=== PATIENT | female | born 1970 | race Caucasian/White ===

== ENCOUNTER → 2017-11-12 08:18 | Outpatient (CLI) | payer OTHER, SELFPAY ==
--- NOTE | 2017-11-12 08:21 | BI_ITS ---
MAMMOGRAPHY - BILATERAL SCREENING 3-D GEOVANY SYNTHESIS REASON FOR EXAM: Female, 47 years old. Bilateral Screening 3-D tomosynthesis PERTINENT HISTORY: No significant family history. TECHNIQUE: 2-D mammograms and 3-D Geovany synthesis of the breast (s) were performed. CAD was performed. COMPARISON: October 17, 2015 FINDINGS: The breast composition is almost entirely fat. There are stable lymph nodes and benign calcifications. Scattered benign calcifications are seen. No dense spiculated masses or suspicious microcalcifications are identified. No architectural distortion is identified. There is no skin thickening or retraction. There has been no significant change since the prior study. BI/SCREENING MAMM (CAD), BILAT IMPRESSION: No mammographic signs of malignancy. Routine yearly mammograms recommended. ASSESSMENT CATEGORY: BIRADS Category 2: Benign. A letter regarding these results will be sent to the patient by the facility within 30 days. FOLLOW UP RECOMMENDATION: Yearly follow up mammogram recommended. (A) Approximately 10% of breast cancers are not detected by mammography. A normal mammogram should not delay biopsy of a clinically suspicious abnormality. Electronically Signed: Remberto Amaro MD at 16:31 EDT , Service support ,
[2017-11-27 12:15] LABS: HPV APTIMA, High Risk Negative (Negative)
== END ==
PROVIDERS: Visit Provider Nurse Practitioner Women's Health
DX: Z12.31 Encounter for screening mammogram for malignant neoplasm of breast (principal); Z12.4 Encounter for screening for malignant neoplasm of cervix
CPT/HCPCS: 77063; 77067; 88175; G0145

== ENCOUNTER → 2018-11-16 | Outpatient (CLI) | payer OTHER, SELFPAY ==
--- NOTE | 2018-11-16 07:42 | BI_ITS ---
MAMMOGRAPHY - BILATERAL SCREENING REASON FOR EXAM: Female, 48 years old. Routine annual screening examination. PERTINENT HISTORY: Non-contributory. TECHNIQUE: Digital bilateral breast geovany (3D mammographic acquisition) in the CC and MLO projections. 2-D mediolateral oblique (MLO) and craniocaudad (CC) views of both breasts were obtained. CAD: Full Field Digital Mammography with Computer Added Detection was performed. COMPARISON: Comparison is made with prior study November 12, 2017 and October 24, 2016. FINDINGS: Breast Composition: There are scattered areas of fibroglandular density. There are no dominant masses or suspicious calcifications. No other significant abnormalities are identified. There has been no significant change since the prior study. BI/SCREEN MAMM (CAD) W/GEOVANY BILAT IMPRESSION: Stable bilateral screening mammogram. Yearly follow-up mammogram recommended. (A) ASSESSMENT CATEGORY: BIRADS Category 1: Negative. A letter regarding these results will be sent to the patient by the facility within 30 days. Approximately 10% of breast cancers are not detected by mammography. A normal mammogram should not delay biopsy of a clinically suspicious abnormality. [id number] Electronically Signed: Jluis Wolfe, at 11:36 EDT , Service support ,
== END | disposition home or self-care (01) ==
LOC: OPBI 07:40
PROVIDERS: Referring Provider Nurse Practitioner Women's Health; Visit Provider Nurse Practitioner Women's Health
DX: Z12.31 Encounter for screening mammogram for malignant neoplasm of breast (principal)
CPT/HCPCS: 77063; 77067

== ENCOUNTER → 2019-11-23 07:34 | Outpatient (CLI) | payer OTHER, SELFPAY ==
[2018-11-16 08:17] VITALS: BMI 40.6
--- NOTE | 2019-11-23 07:35 | BI_ITS ---
MAMMOGRAPHY - BILATERAL SCREENING REASON FOR EXAM: Female, 49 years old. Routine annual screening examination. PERTINENT HISTORY: Non-contributory. TECHNIQUE: Digital bilateral breast geovany (3D mammographic acquisition) in the CC and MLO projections. 2-D mediolateral oblique (MLO) and craniocaudad (CC) views of both breasts were obtained. CAD: Full Field Digital Mammography with Computer Added Detection was performed. COMPARISON: Comparison is made with prior examination dated November 16, 2018 and November 12, 2017. FINDINGS: Breast Composition: There are scattered areas of fibroglandular density. There are no dominant masses or suspicious calcifications. Stable benign-appearing bilateral axillary lymph nodes. No other significant abnormalities are identified. There has been no significant change since the prior study. BI/SCREEN MAMM (CAD) W/GEOVANY BILAT IMPRESSION: Stable bilateral screening mammogram. Yearly follow-up mammogram recommended. (A) ASSESSMENT CATEGORY: BIRADS Category 2: Benign. A letter regarding these results will be sent to the patient by the facility within 30 days. Approximately 10% of breast cancers are not detected by mammography. A normal mammogram should not delay biopsy of a clinically suspicious abnormality. [id number] Electronically Signed: Jluis Wolfe, at 8:37 EDT , Service support ,
== END ==
PROVIDERS: Referring Provider Nurse Practitioner Women's Health; Visit Provider Nurse Practitioner Women's Health
DX: Z12.31 Encounter for screening mammogram for malignant neoplasm of breast (principal)
CPT/HCPCS: 77063; 77067

== ENCOUNTER → 2020-11-28 07:10 | Outpatient (CLI) | payer OTHER, SELFPAY ==
[2020-10-10 10:18] VITALS: BMI 48.5
--- NOTE | 2020-11-28 07:12 | BI_ITS ---
MAMMOGRAPHY - BILATERAL SCREENING REASON FOR EXAM: Female, 50 years old. Routine annual screening examination. PERTINENT HISTORY: Non-contributory. TECHNIQUE: Digital bilateral breast geovany (3D mammographic acquisition) in the CC and MLO projections. 2-D mediolateral oblique (MLO) and craniocaudad (CC) views of both breasts were obtained. CAD: Full Field Digital Mammography with Computer Added Detection was performed. COMPARISON: Comparison is made with prior study dated 11/23/2019 and 11/16/2018. FINDINGS: Breast Composition: There are scattered areas of fibroglandular density. There are no dominant masses or suspicious calcifications. Stable benign-appearing bilateral axillary lymph nodes. No other significant abnormalities are identified. There has been no significant change since the prior study. BI/SCRN MAMM (CAD)W/GEOVANY BILAT IMPRESSION: Stable bilateral screening mammogram. Yearly follow-up mammogram recommended. (A) ASSESSMENT CATEGORY: BIRADS Category 2: Benign. A letter regarding these results will be sent to the patient by the facility within 30 days. Approximately 10% of breast cancers are not detected by mammography. A normal mammogram should not delay biopsy of a clinically suspicious abnormality. [id number] Electronically Signed: Jluis Wolfe MD at 8:15 EDT , Service support ,
== END ==
PROVIDERS: Referring Provider Nurse Practitioner Women's Health; Visit Provider Nurse Practitioner Women's Health
DX: Z12.31 Encounter for screening mammogram for malignant neoplasm of breast (principal)
CPT/HCPCS: 77063; 77067

== ENCOUNTER → 2022-03-20 | Outpatient (CLI) | payer OTHER, SELFPAY ==
--- NOTE | 2022-03-20 07:57 | BI_ITS ---
MAMMOGRAPHY - BILATERAL SCREENING REASON FOR EXAM: Female, 51 years old. Routine annual screening examination. PERTINENT HISTORY: Non-contributory. TECHNIQUE: Digital bilateral breast geovany (3D mammographic acquisition) in the CC and MLO projections. 2-D mediolateral oblique (MLO) and craniocaudad (CC) views of both breasts were obtained. CAD: Full Field Digital Mammography with Computer Added Detection was performed. COMPARISON: Comparison is made with prior study dated 11/28/2020 and 11/23/2019. FINDINGS: Breast Composition: There are scattered areas of fibroglandular density. There are no dominant masses or suspicious calcifications. Stable benign appearing bilateral axillary lymph nodes. No other significant abnormalities are identified. There has been no significant change since the prior study. BI/SCRN MAMM (CAD)W/GEOVANY BILAT IMPRESSION: Stable bilateral screening mammogram. Yearly follow-up mammogram recommended. (A) ASSESSMENT CATEGORY: BIRADS Category 2: Benign. A letter regarding these results will be sent to the patient by the facility within 30 days. Approximately 10% of breast cancers are not detected by mammography. A normal mammogram should not delay biopsy of a clinically suspicious abnormality. [id number] Electronically Signed: Jluis Wolfe MD at 8:44 EDT ,
[2022-03-26 15:21] LABS: HPV APTIMA, High Risk Negative (Negative)
== END | disposition home or self-care (01) ==
LOC: OPBI 07:56
PROVIDERS: Obstetrics & Gynecology; Visit Provider Nurse Practitioner Women's Health
DX: Z12.31 Encounter for screening mammogram for malignant neoplasm of breast (principal); Z12.4 Encounter for screening for malignant neoplasm of cervix
CPT/HCPCS: 77063; 77067; 87624; 88175; G0145

== ENCOUNTER → 2022-03-27 | Outpatient (CLI) | payer OTHER, SELFPAY ==
[2022-03-27 12:27] LABS: Absolute Lymphocyte Count 2.61 X10^3/uL (0.83-4.51); Absolute Neutrophil Count 6.7 X10^3/uL (2.0-7.7); Basophil# 0.06 X10^3/uL; Basophil% 0.6 % (0-1); Eosinophil# 0.07 X10^3/uL; Eosinophils% 0.7 % (0-5); Hematocrit 42.2 % (37-47); Hemoglobin 13.9 g/dL (12.0-15.0); Lymphocyte # 2.61 X10^3/ul (0.83-4.51); Lymphocyte % 25.8 % (19-41); Mean Corp Hgb Conc 32.9 g/dL (32-36); Mean Corpuscular Hgb 28.1 pg (27.0-32.0); Mean Corpuscular Volume 85.4 fL (81-99); Monocyte# 0.65 X10^3/uL; Monocyte% 6.4 % (0-10); NRBC Flagged by Analyzer 0 % (0-5); Neutrophil % 66.1 % (47-70); Platelet Count 385 K/mm3 (150-450); RBC Distribution Width CV 13.4 % (11.6-14.6); RBC Distribution Width SD 41.5 fl (35.1-43.9); Red Blood Count 4.94 M/mm3 (4.2-5.4); White Blood Count 10.1 K/mm3 (4.4-11.0)
[2022-03-27 12:38] LABS: ALB/GLOB Ratio 0.8 RATIO (0.9-2.4); AST(SGOT) 18 U/L (15-37); Alanine Aminotransfer ALT/SGPT 27 U/L (13-56); Albumin, Serum 3.7 g/dL (3.2-5.0); Alkaline Phosphatase 84 U/L (45-117); Anion Gap 7 (5-15); BUN 14 mg/dL (7-18); BUN/Creat Ratio 19.4 RATIO (10-20); Calcium,Total 9.7 mg/dL (8.5-10.1); Chloride 96 mmol/L (98-107); Cholesterol 182 mg/dL (200); Creatinine, Serum 0.72 mg/dL (0.55-1.02); EST Glomerular Filtration Rate 91 mL/min (>60); Est Glom Filt Rate - Afr Amer 110 mL/min (>60); Globulin 4.5 g/dL (2.2-4.2); Glucose 106 mg/dL (74-106); High Density Lipoprotein 44 mg/dL; Potassium 2.9 mmol/L (3.5-5.1); Protein, Total 8.2 g/dL (6.4-8.2); Sodium Level 135 mmol/L (136-145); Triglycerides 121 mg/dL; Very Low Density Lipoprotein 24 mg/dL (5-40); Vitamin D,25 Hydroxy 30.2 ng/mL
[2022-03-27 13:12] LABS: Thyroid Stim Hormone (TSH) 1.21 uIU/mL (0.358-3.74)
== END | disposition home or self-care (01) ==
LOC: BIMLAB 09:57
PROVIDERS: Obstetrics & Gynecology; PCP Internal Medicine; Referring Provider Internal Medicine; Visit Provider Internal Medicine
DX: I10 Essential (primary) hypertension (principal); Z13.1 Encounter for screening for diabetes mellitus; Z13.220 Encounter for screening for lipoid disorders; Z13.29 Encounter for screening for other suspected endocrine disorder; Z13.21 Encounter for screening for nutritional disorder
CPT/HCPCS: 36415; 80053; 80061; 82306; 84443; 85025

== ENCOUNTER → 2022-04-03 | Outpatient (CLI) | payer OTHER, SELFPAY ==
[2022-04-03 12:25] LABS: Anion Gap 7 (5-15); BUN 15 mg/dL (7-18); BUN/Creat Ratio 19.9 RATIO (10-20); Calcium,Total 8.9 mg/dL (8.5-10.1); Chloride 103 mmol/L (98-107); Creatinine, Serum 0.76 mg/dL (0.55-1.02); EST Glomerular Filtration Rate 86 mL/min (>60); Est Glom Filt Rate - Afr Amer 104 mL/min (>60); Glucose 125 mg/dL (74-106); Sodium Level 137 mmol/L (136-145)
== END | disposition home or self-care (01) ==
LOC: BIMLAB 09:35
PROVIDERS: PCP Internal Medicine; Referring Provider Internal Medicine; Visit Provider Internal Medicine
DX: E87.6 Hypokalemia (principal)
CPT/HCPCS: 36415; 80048

== ENCOUNTER → 2022-05-08 | Outpatient (CLI) | payer OTHER, SELFPAY ==
[2022-05-08 12:58] LABS: Anion Gap 5 (5-15); BUN 13 mg/dL (7-18); Calcium,Total 10.1 mg/dL (8.5-10.1); Chloride 102 mmol/L (98-107); Creatinine, Serum 0.68 mg/dL (0.55-1.02); EST Glomerular Filtration Rate 97 mL/min (>60); Est Glom Filt Rate - Afr Amer 117 mL/min (>60); Glucose 104 mg/dL (74-106); Potassium 3.9 mmol/L (3.5-5.1); Sodium Level 139 mmol/L (136-145)
== END | disposition home or self-care (01) ==
LOC: BIMLAB 10:35
PROVIDERS: PCP Internal Medicine; Referring Provider Internal Medicine; Visit Provider Internal Medicine
DX: I10 Essential (primary) hypertension (principal)
CPT/HCPCS: 36415; 80048

== ENCOUNTER → 2022-08-14 | Outpatient (CLI) | payer OTHER, SELFPAY ==
[2022-08-14 12:40] LABS: Anion Gap 7 (5-15); BUN 10 mg/dL (7-18); BUN/Creat Ratio 13.7 RATIO (10-20); Chloride 102 mmol/L (98-107); Creatinine, Serum 0.73 mg/dL (0.55-1.02); EST Glomerular Filtration Rate 89 mL/min (>60); Est Glom Filt Rate - Afr Amer 108 mL/min (>60); Glucose 88 mg/dL (74-106); Potassium 4.2 mmol/L (3.5-5.1); Sodium Level 140 mmol/L (136-145)
== END | disposition home or self-care (01) ==
LOC: BIMLAB 10:25
PROVIDERS: PCP Internal Medicine; Referring Provider Internal Medicine; Visit Provider Internal Medicine
DX: I10 Essential (primary) hypertension (principal)
CPT/HCPCS: 36415; 80048

== ENCOUNTER → 2023-03-10 | Outpatient (CLI) | payer OTHER, SELFPAY ==
[2023-03-10 12:05] LABS: Absolute Lymphocyte Count 1.82 X10^3/uL (0.83-4.51); Absolute Neutrophil Count 7.6 X10^3/uL (2.0-7.7); Basophil# 0.05 X10^3/uL; Basophil% 0.5 % (0-1); Eosinophil# 0.21 X10^3/uL; Hematocrit 41.2 % (37-47); Hemoglobin 13.2 g/dL (12.0-15.0); Lymphocyte # 1.82 X10^3/ul (0.83-4.51); Lymphocyte % 17.6 % (19-41); Mean Corpuscular Hgb 29.3 pg (27.0-32.0); Mean Corpuscular Volume 91.4 fL (81-99); Monocyte# 0.65 X10^3/uL; Monocyte% 6.3 % (0-10); NRBC Flagged by Analyzer 0 % (0-5); Neutrophil % 73.3 % (47-70); Platelet Count 321 K/mm3 (150-450); RBC Distribution Width CV 12.6 % (11.6-14.6); Red Blood Count 4.51 M/mm3 (4.2-5.4); White Blood Count 10.4 K/mm3 (4.4-11.0)
[2023-03-10 12:44] LABS: ALB/GLOB Ratio 0.9 RATIO (0.9-2.4); AST(SGOT) 11 U/L (15-37); Alanine Aminotransfer ALT/SGPT 23 U/L (13-56); Albumin, Serum 3.5 g/dL (3.2-5.0); Alkaline Phosphatase 81 U/L (45-117); Anion Gap 1 (5-15); BUN 15 mg/dL (7-18); BUN/Creat Ratio 19.9 RATIO (10-20); Calcium,Total 9.1 mg/dL (8.5-10.1); Chloride 105 mmol/L (98-107); Cholesterol 189 mg/dL (200); Creatinine, Serum 0.75 mg/dL (0.55-1.02); EST Glomerular Filtration Rate 86 mL/min (>60); Est Glom Filt Rate - Afr Amer 104 mL/min (>60); Globulin 3.8 g/dL (2.2-4.2); Glucose 105 mg/dL (74-106); High Density Lipoprotein 56 mg/dL; Potassium 4.7 mmol/L (3.5-5.1); Protein, Total 7.3 g/dL (6.4-8.2); Sodium Level 139 mmol/L (136-145); Triglycerides 112 mg/dL; Very Low Density Lipoprotein 22 mg/dL (5-40)
== END | disposition home or self-care (01) ==
LOC: BIMLAB 08:03
PROVIDERS: PCP Internal Medicine; Visit Provider Internal Medicine
DX: I10 Essential (primary) hypertension (principal)
CPT/HCPCS: 36415; 80053; 80061; 85025

== ENCOUNTER → 2023-05-07 | Outpatient (CLI) | payer OTHER, SELFPAY ==
--- NOTE | 2023-05-07 07:41 | BI_ITS ---
MAMMOGRAPHY - BILATERAL SCREENING REASON FOR EXAM: Female, 53 years old. Routine annual screening examination. PERTINENT HISTORY: Non-contributory. TECHNIQUE: Digital bilateral breast geovany (3D mammographic acquisition) in the CC and MLO projections. 2-D mediolateral oblique (MLO) and craniocaudad (CC) views of both breasts were obtained. CAD: Full Field Digital Mammography with Computer Added Detection was performed. COMPARISON: Comparison is made with prior study dated March 20, 2022 and November 28, 2020. FINDINGS: Breast Composition: There are scattered areas of fibroglandular density. There are no dominant masses or suspicious calcifications. Stable bilateral fat-containing axillary lymph nodes. No other significant abnormalities are identified. There has been no significant change since the prior study. BI/SCRN MAMM (CAD)W/GEOVANY BILAT IMPRESSION: Stable bilateral screening mammogram. Yearly follow-up mammogram recommended. (A) ASSESSMENT CATEGORY: BIRADS Category 2: Benign. A letter regarding these results will be sent to the patient by the facility within 30 days. Approximately 10% of breast cancers are not detected by mammography. A normal mammogram should not delay biopsy of a clinically suspicious abnormality. [id number] Electronically Signed: Jluis Wolfe MD at 14:20 EST ,
== END | disposition home or self-care (01) ==
LOC: OPBI 07:40
PROVIDERS: PCP Internal Medicine; Referring Provider Nurse Practitioner Women's Health; Visit Provider Nurse Practitioner Women's Health
DX: Z12.31 Encounter for screening mammogram for malignant neoplasm of breast (principal)
CPT/HCPCS: 77063; 77067

== ENCOUNTER → 2023-08-06 | Outpatient (CLI) | payer OTHER, SELFPAY ==
--- OUTSIDE RECORDS SUMMARY | 2023-08-06 09:22 | XMS RPT_ITS | CCD ---
Author Name Unknown Address [address] [place] [address] Organization [facility] Allergies Allergy Classification Reported Allergen(s) Allergy Type Date of Onset Reaction(s) Facility (1 source) doxycycline; Translations: [DOXYCYCLINE HYCLATE] Drug Allergy 5 [facility] Repository (1 source) erythromycin; Translations: [ERYTHROMYCIN] Drug Allergy 5 [facility] Repository (1 source) Sulfonamides (Antibiotic); Translations: [SULFA (SULFONAMIDE ANTIBIOTICS)] Propensity to adverse reactions to drug (disorder) 5 [facility] Repository Results Test Name Value Interpretation Reference Range Facil ity Encounters Encounter Date Encounter Type Care Provider Facility Start: 03-30-2018 End: 03-31-2018 Patient encounter [facility] Summary Purpose Family History No Family History Records Found Advance Directives No Advanced Directives Records Found Additional Source Comments INFORMATION SOURCE (unrecogn ized section and content) FOR RECORDS PERTAINING TO PATIENTS WHO ARE OR HAVE BEEN ENROLLED IN A CHEMICAL DEPENDENCY/SUBSTANCEABUSE PROGRAM, SOME INFORMATION MAY BE OMITTED. This clinical summary was aggregated from multiple sources. Caution should be exercised in using it in the provision of clinical care. This summary normalizes information from multiple sources, and as a consequence, information in this document may materially change the coding, format and clinical context of patient data. In addition, data may be omitted in some cases. CLINICAL DECISIONS SHOULD BE BASED ON THE PRIMARY CLINICAL RECORDS. [employer] provides no warranty or guarantee of the accuracy or completeness of information in this document.
[2023-08-06 13:08] LABS: Anion Gap 2 (5-15); BUN 15 mg/dL (7-18); BUN/Creat Ratio 20.9 RATIO (10-20); Chloride 105 mmol/L (98-107); Creatinine, Serum 0.72 mg/dL (0.55-1.02); EST Glomerular Filtration Rate 91 mL/min (>60); Est Glom Filt Rate - Afr Amer 110 mL/min (>60); Glucose 110 mg/dL (74-106); Potassium 4.8 mmol/L (3.5-5.1); Sodium Level 140 mmol/L (136-145)
== END | disposition home or self-care (01) ==
LOC: BIMLAB 08:56
PROVIDERS: PCP Internal Medicine; Referring Provider Internal Medicine; Visit Provider Internal Medicine
DX: I10 Essential (primary) hypertension (principal); E87.6 Hypokalemia
CPT/HCPCS: 36415; 80048

== ENCOUNTER → 2024-03-25 | Outpatient (CLI) | payer OTHER, SELFPAY ==
[2024-03-25 16:39] LABS: Absolute Lymphocyte Count 2.67 X10^3/uL (0.83-4.51); Absolute Neutrophil Count 5.1 X10^3/uL (2.0-7.7); Basophil# 0.07 X10^3/uL; Basophil% 0.8 % (0-1); Eosinophil# 0.19 X10^3/uL; Eosinophils% 2.2 % (0-5); Hemoglobin 13.1 g/dL (12.0-15.0); Lymphocyte # 2.67 X10^3/ul (0.83-4.51); Lymphocyte % 30.8 % (19-41); Mean Corpuscular Hgb 29.4 pg (27.0-32.0); Mean Corpuscular Volume 91.9 fL (81-99); Mean Platelet Vol. 9.6 fl (6.2-12.0); Monocyte# 0.55 X10^3/uL; Monocyte% 6.4 % (0-10); NRBC Flagged by Analyzer 0 % (0-5); Neutrophil # 5.14 X10^3/uL (2.7-7.7); Neutrophil % 59.3 % (47-70); Platelet Count 418 K/mm3 (150-450); RBC Distribution Width CV 13.2 % (11.6-14.6); Red Blood Count 4.46 M/mm3 (4.2-5.4); White Blood Count 8.7 K/mm3 (4.4-11.0)
[2024-03-25 16:54] LABS: ALB/GLOB Ratio 0.9 RATIO (0.9-2.4); AST(SGOT) 16 U/L (15-37); Alanine Aminotransfer ALT/SGPT 26 U/L (13-56); Albumin, Serum 3.8 g/dL (3.2-5.0); Alkaline Phosphatase 80 U/L (45-117); Anion Gap 5 (5-15); BUN 20 mg/dL (7-18); Calcium,Total 9.7 mg/dL (8.5-10.1); Chloride 104 mmol/L (98-107); Cholesterol 216 mg/dL (200); Creatinine, Serum 0.67 mg/dL (0.55-1.02); EST Glomerular Filtration Rate 99 mL/min (>60); Est Glom Filt Rate - Afr Amer 120 mL/min (>60); Globulin 4.1 g/dL (2.2-4.2); Glucose 85 mg/dL (74-106); High Density Lipoprotein 62 mg/dL; Potassium 4.4 mmol/L (3.5-5.1); Protein, Total 7.9 g/dL (6.4-8.2); Sodium Level 138 mmol/L (136-145); Triglycerides 154 mg/dL; Very Low Density Lipoprotein 31 mg/dL (5-40)
== END | disposition home or self-care (01) ==
LOC: BIMLAB 15:54
PROVIDERS: PCP Internal Medicine; Referring Provider Internal Medicine; Visit Provider Internal Medicine
DX: I10 Essential (primary) hypertension (principal)
CPT/HCPCS: 36415; 80053; 80061; 85025

== ENCOUNTER → 2024-08-10 | Outpatient (CLI) | payer OTHER, SELFPAY ==
--- NOTE | 2024-08-10 08:06 | BI_ITS ---
PROCEDURE: SCRN MAMM (CAD)W/GEOVANY BILAT REASON FOR EXAM: F, Age 54 y/o, no family history. Routine follow-up. TECHNIQUE: Bilateral screening digital breast tomosynthesis with 2D and 3D images. Computer aided detection. COMPARISON: Prior exam(s) dating back to May 07, 2023. FINDINGS: The breasts are almost entirely fatty. Stable bilateral fat containing axillary lymph nodes. No suspicious masses, areas of developing architectural distortion, or suspicious calcifications. BI/SCRN MAMM (CAD)W/GEOVANY BILAT IMPRESSION: BI-RADS 2: BENIGN. RECOMMEND ANNUAL MAMMOGRAPHIC SCREENING. Follow-up code: Routine Follow-up The patient will be notified of the results by letter. Reading Location: [id number]
== END | disposition home or self-care (01) ==
LOC: OPBI 07:55
PROVIDERS: PCP Internal Medicine; Referring Provider Nurse Practitioner Women's Health; Visit Provider Nurse Practitioner Women's Health
DX: Z12.31 Encounter for screening mammogram for malignant neoplasm of breast (principal)
CPT/HCPCS: 77063; 77067

== ENCOUNTER → 2024-10-05 | Outpatient (CLI) | payer OTHER, SELFPAY ==
[2024-10-05 16:38] LABS: ALB/GLOB Ratio 1.4 RATIO (0.9-2.4); AST(SGOT) 18 U/L (<=31); Alanine Aminotransfer ALT/SGPT 18 U/L (<=34); Albumin, Serum 4.3 g/dL (3.5-5.0); Alkaline Phosphatase 73 U/L (35-104); Anion Gap 11 (5-15); BUN 14 mg/dL (4-19); Carbon Dioxide 27.1 mmol/L (21.0-32.0); Chloride 101 mmol/L (98-108); Creatinine, Serum 0.64 mg/dL (0.70-1.20); EST Glomerular Filtration Rate 106 (>60); Globulin 3.1 g/dL (2.2-4.2); Glucose 93 mg/dL (70-99); Potassium 4.5 mmol/L (3.3-5.1); Protein, Total 7.5 g/dL (5.9-8.4); Sodium Level 139 mmol/L (133-145); Total Bilirubin 0.32 mg/dL (0.00-1.30)
== END | disposition home or self-care (01) ==
LOC: BIMLAB 13:02
PROVIDERS: PCP Internal Medicine; Referring Provider Internal Medicine; Visit Provider Internal Medicine
DX: I10 Essential (primary) hypertension (principal)
CPT/HCPCS: 36415; 80053

== ENCOUNTER → 2025-03-02 | Outpatient (CLI) | payer OTHER, SELFPAY ==
--- NOTE | 2025-03-02 15:45 | CT_ITS ---
PROCEDURE: CHEST WITH CONTRAST 03/02/2025 REASON FOR EXAM: ABNORMAL CXR TECHNIQUE: Procedure Code: CTCHW Modality: CT Procedure: CHEST WITH CONTRAST Coronal and Sagittal reconstruction series were provided. CONTRAST: Isovue [id number] VOLUME: 100 mL One or more dose reduction techniques were used (e.g., Automated exposure control, adjustment of the mA and/or kV according to patient size, use of iterative reconstruction technique). RADIATION DOSE SUMMARY: CTDlvol: 29.51 mGy DLP: 649.61 mGycm COMPARISON: Previous chest x-ray FINDINGS: Lung windows show the lungs to be normally expanded. There is no organized infiltrate or effusion, there is rounded atelectasis posterior to the right mainstem bronchus in the right lower lobe. No suspicious noncalcified mass or nodule is noted. Soft tissue windows show a normal-appearing thyroid gland. No suspicious axillary, mediastinal or perihilar adenopathy. Limited cuts through the upper abdomen do not show a suspicious abnormality, there is fatty infiltration of the liver. Bony structures show degenerative change. CT/Chest WITH Contrast IMPRESSION: Coronary artery calcification (CAC) is is absent No acute pulmonary process, there is rounded atelectasis posterior to the right mainstem bronchus in the superior segment of the right lower lobe, follow-up is recommended to ensure resolution No suspicious noncalcified mass or nodule No suspicious adenopathy Reading Location: [id number]
--- OUTSIDE RECORDS SUMMARY | 2025-03-02 21:23 | XMS RPT_ITS | CCD ---
Author Organization [facility] Cl[facility] Care Team Providers Care Manager Of Internal Audit Name Role Phone Care Physician, No Primary Primary Care Provider Unavailable Care Physician, No Primary Referring Provider Un available Dr. Renea Stacy Attending Provider 1(3 30) Care Physician, No Primary Primary Care Provider Unavailable Care Physician, No Primary Referring Provider Un available Dr. Renea Stacy Attending Provider 1(3 30) Dr. Lynn Barrera Attending Provider [phone] Dr. Lynn Barrera Primary Care Provider 1(33 0) Dr. Lynn Barrera Referring Provider [phone] Dr. Lynn Barrera Attending Provider [phone])2 Dr. Lynn Barrera Primary Care Provider 1(33 0) Dr. Lynn Barrera Referring Provider [phone])2 GLADIS Gunderson Attending Provider Dr. Lynn Barrera Attending Provider [phone] Luis CORE CUTTER, CORE CUTTER-C Merissa Attending Provider [phone] Dr. Lynn Barrera MD Primary Care Provider Dr. Lynn Barrera MD Attending Provider 1(33 0) Dr. Lynn Barrera MD Referring Provider [phone] Luis CORE CUTTER-C, Merissa Attending Provider [phone] Luis CORE CUTTER-C, Merissa Referring Provider [phone] Dr. Lynn Barrera MD Primary Care Provider Holly ROCA, Dr. Avalos Referring Provider [phone] 0) Holly ROCA, Dr. Avalos Attending Provider [phone] 0) Holly ROCA, Lynn Kwong Primary Care Provider 1(3 30) OLEGHE, EFEWONGBE B Primary Care Unavailable ABEREGG, KRISLYN P Attending Unavailable ABEREGG, KRISLYN P Referring Unavailable OLEGHE, EFEWONGBE B Primary Care Unavailable Holly ROCA, Dr. Avalos Primary Care Provider Holly ROCA, Dr. Avalos Attending Provider [phone] 0) Holly ROCA, Dr. Avalos Referring Provider 1(33 0) Nikos Arzola Attending Provider [phone] Oleghe, Efewongbe Primary Care Unavailable Nikos Arzola Attending Unavailable Nikos Arzola Referring Unavailable Oleghe, Efewongbe Primary Care Unavailable Oleghe, Efewongbe Attending Unavailable Oleghe, Efewongbe Referring Unavailable [place] CORE CUTTER, Merissa Attending Unavailable Oleghe, Efewongbe Primary Care Unavailable Oleghe, Efewongbe Referring Unavailable Oleghe, Efewongbe Referring Unavailable Oleghe, Efewongbe Primary Care Unavailable Oleghe, Efewongbe Attending Unavailable Oleghe, Efewongbe Primary Care Unavailable Nikos Arzola Attending Unavailable Oleghe, Efewongbe Referring Unavailable Oleghe, Efewongbe Primary Care Unavailable Oleghe, Efewongbe Attending Unavailable Oleghe, Efewongbe Referring Unavailable [place] CORE CUTTER, Merissa Referring Unavailable Oleghe, Efewongbe Primary Care Unavailable [place] CORE CUTTER, Merissa Attending Unavailable Oleghe, Efewongbe Primary Care Unavailable Oleghe, Efewongbe Attending Unavailable Oleghe, Efewongbe Referring Unavailable Oleghe, Efewongbe Primary Care Unavailable Oleghe, Efewongbe Attending Unavailable Oleghe, Efewongbe Referring Unavailable Allergies Allergy Classification Reported Allergen(s) Allergy Type Date of Onset Reaction(s) Facility (9 sources) Sulfonamides (Antibiotic); Translations: [SULFA (SULFONAMIDE ANTIBIOTICS)] Allergy to substance 5 Nausea/Vom/Diar michael [facility] (4 sources) Doxycycline; Translations: [DOXYCYCLINE HYCLATE] Drug Allergy 5 [facility] Work Phone: (4 sources) Erythromycin; Translations: [ERYTHROMYCIN] Drug Allergy 5 GI Upset [facility] Work Phone: [phone] (3 sources) Sulfonamides (Antibiotic) Propensity to adverse reactions 5 Rash [facility] Work Phone: (1 source) Sulfonamides (Antibiotic) Drug allergy (disorder) 5 [facility] Repository Medications Current Medications Medication Drug Class(es) Dates Sig (Normalized) Sig (Original) Albuterol-Budesonid e (Airsupra) 90-80 mcg/actuation HFA aerosol inhaler (1 source) Start: 02-16-2025 Albuterol-Budesoni de (Airsupra) 90-80 mcg/actuation HFA aerosol inhaler Active 2 NMA INHALATION .Q 4 hours as needed for shortness of breath 10.7 0 February 16, 2025 12:00am as a single dose; may repeat up to 6 doses per day (12 inhalations) benzonatate 100 mg oral capsule (10 sources) Non-narcotic Antitussive Start: 02-16-2025 Benzonatate 100 mg capsule Active 100 mg PO 2 to 3 times per day as needed February 16, 2025 12:00am Start: 02-16-2025 take 1 capsule by [facility] three times daily as needed for cough Benzonatate 200 mg capsule Active 200 mg PO THREE TIMES A DAY as needed for cough 21 0 February 16, 2025 12:00am Start: 03-14-2023 End: 03-19-2023 take 2 capsules by mouth three times daily as needed for cough Benzonatate 100 mg capsule Discontinued 200 mg PO THREE TIMES A DAY as needed for cough 30 0 March 14, 2023 12:00am March 19, 2023 8:08am Start: 03-14-2023 End: 03-19-2023 take 200 mg by mouth three times daily Benzonatate Discontinued 200 MG PO THREE TIMES A DAY March 13, 2023 11:00pm March 19, 2023 7:08am Start: 03-30-2018 End: 02-10-2025 take 1 capsule by mouth every eight hours as needed for cough and cough benzonatate (TESSALON PERLES) 100 mg capsule Indications: Cough Take 1 capsule by mouth three times daily as needed. 40 capsule 03/30/2018 02/03/2025 Discontinued (Course of therapy completed) betamethasone 0.5 mg/ml / clotrimazole 10 mg/ml topical cream (3 sources) Azole Antifungal, Corticosteroid Start: 06-29-2015 clotrimazole-betamethasone (LOTRISONE) cream Apply 1 application to affected area twice daily. UNTIL CLEAR FOR UP TO 2-3 WEEKS 30 g 1 06/29/2015 Active Calcium (3 sources) Phosphate Binder, Calcium Start: 04-24-2007 take 2 tablets by mouth twice daily calcium (elemental) ORAL Tab Take two tablets twice daily 0 04/24/2007 Active cetirizine hydrochloride 10 mg oral capsule (10 sources) Histamine-1 Receptor Antagonist Start: 03-27-2022 take 1 capsule by mouth once daily as needed Cetirizine (Zyrtec) 10 mg capsule Active 10 mg PO DAILY as needed March 27, 2022 12:00am take 1 tablet by mouth once nita y cetirizine (ZYRTEC) 10 mg tablet Take 10 mg by mouth once daily. Active Collagen (5 sources) Start: 03-19-2023 Collagen (Bovi ne) 100 % powder Active 1 NMA TOPICAL DAILY March 19, 2023 12:00am apply a 1/4 inches inch thick layer, do not pack tightly; cover using a non-adherent dressing Start: 03-19-2023 Collagen (Bovi ne) Active 1 APPLIC TOPICAL DAILY March 18, 2023 11:00pm apply a 1/4 inches inch thick layer, do not pack tightly; cover using a non-adherent dressing Dietary Supplement (2 sources) Start: 03-19-2023 Dietary Supple ment Active CAP PO March 18, 2023 11:00pm Start: 03-19-2023 End: 05-07-2023 Dietary Supplement Discontin ued CAP PO March 18, 2023 11:00pm May 07, 2023 8:08am Dietary Supplement capsule (8 sources) Start: 03-19-2023 Dietary Supple ment capsule Active NMA PO March 19, 2023 12:00am Start: 03-19-2023 End: 05-07-2023 Dietary Supplement capsule D iscontinued NMA PO March 19, 2023 12:00am May 07, 2023 9:08am doxycycline hyclate 100 mg oral capsule (1 source) Tetracycline-class Drug Start: 02-16-2025 take 1 capsule by mouth twice daily Doxycycline Hyclate 100 mg capsule Active 100 mg PO TWICE A DAY 20 February 16, 2025 12:00am 12 hr guaiFENesin 600 mg extended release oral tablet (3 sources) Start: 03-30-2018 take 2 tablets by mouth twice daily guaiFENesin (MUCINEX) 600 mg 12 hr tablet Indications: Sinobronchitis Take 2 tablets by mouth twice daily. 60 tablet 03/30/2018 Active levonorgestrel 0.444524 mg/hr intrauterine system (16 sources) Progestin, Progestin-containing Intrauterine Device Start: 08-31-2020 Levonorgestrel (Liletta) 20.1 mcg/24 hrs (6 yrs) 52 mg intrauterine device Active 1 NMA INTRA-UTER ONCE August 31, 2020 12:00am as a single dose Start: 08-31-2020 Levonorgestrel (Liletta) 20.1 mcg/24 hrs (6 yrs) 52 mg intrauterine device Active 1 DEVICE INTRA-UTER ONCE August 30, 2020 11:00pm as a single dose Start: 11-12-2017 End: 08-31-2020 Levonorgestrel (Mirena) 20 m cg/24 hr (5 years) intrauterine device Discontinued 1 NMA INTRA-UTER ONCE November 12, 2017 12:00am August 31, 2020 10:07am Start: 11-12-2017 End: 08-31-2020 Levonorgestrel (Mirena) 20 m cg/24 hr (5 years) intrauterine device Discontinued 1 INSERT INTRA-UTER ONCE November 11, 2017 11:00pm August 31, 2020 9:07am methylPREDNISolone (5 sources) Corticosteroid Start: 02-03-2025 End: 02-09-2025 methylPREDNISolone (MEDROL, NABILA,) 4 mg Dose-Pack Take as instructed per package. 21 tablet 02/03/2025 02/09/2025 Active Start: 02-24-2024 End: 03-25-2024 take 1 tablet by mouth once Methylprednisolone (Medrol (Nabila)) 4 mg tablets,dose pack Discontinued 0 PO per package directions 21 February 24, 2024 12:00am March 25, 2024 3:13pm PO PER PKG DIR mometasone furoate 1 mg/ml topical cream (11 sources) Corticosteroid Start: 08-06-2023 End: 02-02-2024 Mometasone 0.1 % cream Active 1 NMA TOPICAL DAILY as needed for rash 45 2 February 02, 2024 9:02am Start: 03-30-2018 mometasone (EL DINORAH) 0.1 % cream Indications: Atopic dermatitis, unspecified type Apply 1 application to affected area once daily. 45 g 1 03/30/2018 Active triamcinolone acetonide 0.055 mg/actuat metered dose nasal spray (20 sources) Corticosteroid Start: 07-05-2024 Triamcinolone Acetonide (Nasacort Allergy) 55 mcg aerosol,spray Active 2 NMA INTRANASAL DAILY 16.9 2 July 05, 2024 9:58am administer into each nostril Start: 08-07-2023 End: 07-05-2024 Triamcinolone Acetonide (Luis Alberto acort Allergy) 55 mcg aerosol,spray Discontinued 2 NMA INTRANASAL DAILY 16.9 2 February 23, 2024 3:00pm July 05, 2024 9:58am administer into each nostril Start: 08-26-2022 End: 08-07-2023 Triamcinolone Acetonide (Luis Alberto acort Allergy) 55 mcg aerosol,spray Discontinued 2 NMA INTRANASAL DAILY 16.9 2 March 19, 2023 8:22am August 07, 2023 1:27pm administer into each nostril Start: 08-26-2022 End: 03-19-2023 take 1 spray(s) nasal route once daily Triamcinolone Acetonide (Nasacort Allergy) 55 mcg aerosol,spray Active 2 SPRAY INTRANASAL DAILY 16.9 March 19, 2023 7:22am administer into each nostril VITAMIN B COMPLEX ORAL (3 sources) take 1 tablet by phill th once daily VITAMIN B COMPLEX ORAL Take 1 tablet by mouth once daily. Active Completed/Discontinued Medications Medication Drug Class(es) Dates Sig (Normalized) Sig (Original) ascorbic acid 500 mg oral capsule (11 sources) Vitamin C Start: 11-16-2018 End: 03-19-2023 Ascorbic Acid (Vitamin C) 500 mg capsule Discontinued mg PO 0 November 16, 2018 12:00am March 19, 2023 8:08am Start: 11-16-2018 End: 03-19-2023 Ascorbic Acid (Vitamin C) Discontinued MG PO November 15, 2018 11:00pm March 19, 2023 7:08am Start: 04-24-2007 take 1 tablet by phill th once daily Ascorbic Acid (VITAMIN C) 1,000 mg ORAL Tab Take one or two daily 0 04/24/2007 Active Ascorbic Acid-Elderberry Fru it (Airborne (Elderberry)) 100-50 mg tablet,chewable (7 sources) Start: 03-27-2022 End: 08-14-2022 Ascorbic Acid-Elderberry Fru it (Airborne (Elderberry)) 100-50 mg tablet,chewable Discontinued {tbl} PO March 27, 2022 12:00am August 14, 2022 10:38am Start: 03-27-2022 End: 08-14-2022 Ascorbic Acid-Elderberry Fru it (Airborne (Elderberry)) 100-50 mg tablet,chewable Discontinued TABLET PO March 26, 2022 11:00pm August 14, 2022 9:38am Start: 03-27-2022 Ascorbic Acid- Elderberry Fruit (Airborne (Elderberry)) 100-50 mg tablet,chewable Active TABLET PO March 26, 2022 11:00pm azithromycin 250 mg oral tablet (10 sources) Macrolide Antimicrobial Start: 03-14-2023 End: 03-19-2023 take 2-5 tablets by mouth once daily Azithromycin 250 mg tablet Discontinued 0 PO .COMPLEX 6 0 March 14, 2023 12:00am March 19, 2023 8:08am take 500 mg today (day 1), then 250 mg for 4 days (days 2-5) PO Start: 08-26-2022 End: 11-15-2022 take 2-5 tablets by mouth once daily Azithromycin 250 mg tablet Discontinued 0 PO .COMPLEX 6 0 August 26, 2022 12:00am November 15, 2022 8:00am take 500 mg today (day 1), then 250 mg for 4 days (days 2-5) PO B-Complex With Vitamin C (4 sources) Start: 11-23-2019 End: 11-15-2022 take 1 tablet by mouth once daily B-Complex With Vitamin C Discontinued 1 TABLET PO DAILY November 22, 2019 11:00pm November 15, 2022 7:00am Start: 11-23-2019 take 1 tablet by phill th once daily B-Complex With Vitamin C Active 1 TABLET PO DAILY November 22, 2019 11:00pm Start: 11-23-2019 take 1 tablet by phill th once daily B-Complex With Vitamin C Active 1 TABLET PO DAILY November 23, 2019 12:00am B-Complex With Vitamin C tablet (4 sources) Start: 11-23-2019 End: 11-15-2022 B-Complex With Vitamin C tablet Discontinued 1 {tbl} PO DAILY November 23, 2019 12:00am November 15, 2022 8:00am biotin 1 mg oral capsule (16 sources) Start: 08-31-2020 End: 03-19-2023 take 1 capsule by mouth once daily Biotin 1 mg capsule Discontinued 1 mg PO DAILY August 31, 2020 12:00am March 19, 2023 8:08am Start: 11-16-2018 End: 11-23-2019 take 1 capsule by mouth once daily Biotin 1 mg capsule Discontinued 1 mg PO DAILY November 16, 2018 12:00am November 23, 2019 8:04am calcium carbonate 1500 mg / cholecalciferol 0.01 mg oral capsule (8 sources) Vitamin D Start: 11-16-2018 End: 11-15-2022 Calcium Carbonate-Vitamin D3 (Calcium 600 With Vitamin D3) 600 mg(1,500mg) -400 unit capsule Discontinued NMA PO 0 November 16, 2018 12:00am November 15, 2022 8:00am Start: 11-16-2018 End: 11-15-2022 calcium carbonate-vitamin D3 600 mg (1,500 mg)-400 unit capsule Discontinued CAP PO November 15, 2018 11:00pm November 15, 2022 7:00am CBD (8 sources) Start: 08-31-2020 End: 03-20-2022 CBD Discontinued PO 0 August 31, 2020 12:00am March 20, 2022 8:52am Start: 08-31-2020 End: 03-20-2022 CBD Discontinued PO August 302020 11:00pm March 20, 2022 7:52am Start: 08-31-2020 End: 03-20-2022 CBD Discontinued PO August [id number] 12:00am March 20, 2022 8:52am 12 hr dextromethorphan polistirex 6 mg/ml extended release suspension (5 sources) Uncompetitive D-oyixkj-I-aspartate Receptor Antagonist, Sigma-1 Agonist Start: 03-14-2023 End: 03-19-2023 take 1 mL by mouth every twelve hours Dextromethorphan Polistirex (12-Hour Cough Relief) 30 mg/5 mL suspension,extended rel 12 hr Discontinued 10 mL PO Q12H March 14, 2023 12:00am March 19, 2023 8:08am Start: 03-14-2023 End: 03-19-2023 take 1 mL by mouth every twelve hours Dextromethorphan Polistirex (12-Hour Cough Relief) 30 mg/5 mL suspension,extended rel 12 hr Discontinued 10 ML PO Q12H March 13, 2023 11:00pm March 19, 2023 7:08am dextromethorphan hydrobromide 2 mg/ml / guaiFENesin 20 mg/ml oral solution (5 sources) Uncompetitive T-srogsa-S-aspartate Receptor Antagonist, Sigma-1 Agonist Start: 08-26-2022 End: 11-15-2022 take 1 mL by mouth every four hours as needed for cough Dextromethorphan-Guaifenesin 10-100 mg/5 mL liquid Discontinued 10 mL PO Q4H as needed for cough 120 0 August 26, 2022 12:00am November 15, 2022 8:00am Start: 08-26-2022 End: 11-15-2022 take 1 mL by mouth every four hours Dextromethorphan-Guaifenesin Discontinue d 10 ML PO Q4H 120 August 25, 2022 11:00pm November 15, 2022 7:00am diphenhydrAMINE hydrochloride 25 mg oral capsule (5 sources) Histamine-1 Receptor Antagonist Start: 03-14-2023 End: 03-19-2023 take 1 capsule by mouth at bedtime as needed Diphenhydramine Hcl (Benadryl) 25 mg capsule Discontinued 25 mg PO AT BEDTIME as needed March 14, 2023 12:00am March 19, 2023 8:08am hydroCHLOROthiazide 25 mg oral tablet (8 sources) Thiazide Diuretic Start: 03-20-2022 End: 03-27-2022 take 1 tablet by mouth twice daily Hydrochlorothiazide 25 mg tablet Discontinued 25 mg PO TWICE A DAY 60 March 20, 2022 12:00am March 27, 2022 9:45am hydroCHLOROthiazide 25 mg / triamterene 37.5 mg oral tablet (20 sources) Potassium-spari ng Diuretic, Thiazide Diuretic Start: 03-27-2022 End: 01-27-2025 Triamterene-Hydrochlor othiazid 37.5-25 mg tablet Discontinued 1 {tbl} PO EVERY MORNING 90 May 10, 2024 5:33pm July 05, 2024 9:59am Start: 03-27-2022 End: 11-15-2022 take 1 tablet by mouth once daily in the morning Triamterene-Hydrochlorothiazid Active 1 TABLET PO EVERY MORNING 90 November 15, 2022 7:19am potassium chloride 20 meq extended release oral tablet (7 sources) Start: 03-27-2022 End: 08-14-2022 take 2 tablets by mouth once daily Potassium Chloride 20 mEq tablet extended release Discontinued 40 meq PO DAILY 6 March 27, 2022 12:00am August 14, 2022 10:39am Start: 03-27-2022 End: 08-14-2022 take 40 mEq by mouth once daily Potassium Chloride Discontinued 40 MEQ PO DAILY March 26, 2022 11:00pm August 14, 2022 9:39am valsartan 80 mg oral tablet (20 sources) Angiotensin 2 Receptor Fabiana Start: 03-27-2022 End: 02-07-2025 take 1 tablet by mouth once daily Valsartan 80 mg tablet Discontinued 80 mg PO DAILY 90 May 10, 2024 5:33pm July 05, 2024 9:59am Problems Active Problems Problem Classification Problem Date Documented Da te Episodic/Chronic Chronic obstructive pulmonary disease and bronchiectasis (2 sources) Bronchitis; Translations: [Bronchitis, not specified as acute or chronic] 02-16-2025 Episodic Essential hypertension (18 sources) Hypertensive disorder; Translations: [Essential (primary) hypertension] Onset: 11-24-2024 Chronic Fever of unknown origin (3 sources) Fever; Translations: [Fever, unspecified] Onset: 02-03-2025 02-03-2025 Episodic Other gastrointestinal disorders (1 source) Acute constipation; Translations: [Constipation, unspecified] 02-03-2025 Episodic Other gastrointestinal disorders (1 source) Constipation, unspecified; Translations: [Acute constipation] Onset: 02-03-2025 Episodic Other lower respiratory disease (1 source) Cough; Translations: [Acute cough] 02-03-2025 Episodic Other lower respiratory disease (2 sources) Lung finding; Translations: [Other nonspecific abnormal finding of lung field] 02-16-2025 Episodic Other lower respiratory disease (2 sources) Other nonspecific abnormal finding of lung field; Translations: [Other nonspecific abnormal finding of lung field] Onset: 02-16-2025 Episodic Other nutritional; endocrine; and metabolic disorders (9 sources) Morbid obesity; Translations: [Morbid (severe) obesity due to excess calories] 03-27-2022 Chronic Other nutritional; endocrine; and metabolic disorders (6 sources) Morbid (severe) obesity due to excess calories; Translations: [Morbid obesity] Onset: 11-24-2024 Chronic Other nutritional; endocrine; and metabolic disorders (3 sources) Metabolic syndrome X; Translations: [Dysmetabolic syndrome X] Onset: 07-30-2005 10-12-2024 Chronic Other upper respiratory disease (7 sources) Seasonal allergy; Translations: [Other seasonal allergic rhinitis] 03-19-2023 Chronic Other upper respiratory disease (1 source) Other seasonal allergic rhinitis; Translations: [Allergic rhinitis, cause unspecified] 03-19-2023 Chronic Substance-related disorders (3 sources) Tobacco user; Translations: [Nicotine dependence, unspecified, uncomplicated] Onset: 07-30-2005 10-12-2024 Chronic Unclassified (1 source) Acute cough; Translations: [Acute cough] Onset: 02-03-2025 Past or Other Problems Problem Classification Problem Date Documented Date Episodic/Chronic Contraceptive and procreative management (15 sources) Intrauterine contraceptive device in situ; Translations: [Presence of (intrauterine) contraceptive device] Onset: 07-22-2012 08-31-2020 Episodic Comment on above: raoul 08/2020 Fluid and electrolyte disorders (14 sources) Hypokalemia; Translations: [Hypokalemia] Onset: 11-24-2024 Episodic Other screening for suspected conditions (not mental disorders or infectious disease) (1 source) Encounter for screening mammogram for malignant neoplasm of breast; Translations: [Encounter for screening mammogram for malignant neoplasm of breast] Onset: 08-22-2024 Episodic Results Test Name Value Interpretation Reference Range Facility Internal Medicine Office Vis iton 02-16-2025 Internal Medicine Office Visit [facility] [address] [place], [place] [address] OFFICE VISIT Date of Service: 02/16/25 MR#: [id number] Acct: [id number] Name: IONA WERNER Rep #: [id number] : 1970 Provider: GLADIS Manzano Age/Sex: 54/F Location: [facility] Status: Signed Intake Vital Signs 11/24/24 08:26 02/16/25 10:34 Height 5 ft 3 in 5 ft 3 in Weight: 263 lb 6 oz 267 lb 6 oz BMI 46.6 47.3 BP 146/88 H 124/78 H Blood Pressure Location Lt brachial Rt brachial Position Sitting Sitting Respiration 16 16 Pulse 69 87 Pulse Source Monitor Monitor Temp 96.5 F L 98.1 F Temp Source Temporal Temporal Pulse Oximetry (%) 96 97 Oxygen Delivery Method room air room air Intake Visit Reasons: ACUTE-COUGH/CONGESTI ON Chief Complaint: cough congestion Forensic Social Worker Required: No Accompanied by: Self Is patient in pain?: No Allergies Sulfa (Sulfonamide Antibiotics) Allergy (Mild, Verified 02/16/25 10:26) Nausea/Vom/Diarrhea Medications ???Medication ???Instructions ???Recorded ???Confirmed ???Type levonorgestrel 20.4 mcg/24 hr (up 1 device intrauterine ONCE 02/16/25 History to 8 yrs) 52 mg intrauterine device (Liletta) cetirizine 10 mg capsule (Zyrtec) 10 mg PO DAILY PRN 03/27/2202/16 History collagen (bovine) 100 % topical 1 applic topical DAILY 03/19/23 History powder dietary supplement cap PO 03/19/23 02/16/25 History mometasone 0.1 % topical cream 1 applic topical DAILY PRN rash 02/16/25 Rx #45 grams triamcinolone acetonide 55 mcg 2 spray intranasal DAILY #16.9 mL 07/05/24 02/16/25 Rx nasal spray aerosol (Nasacort Allergy) triamterene 37.5 1 tab PO QAM #90 tabs 01/27/2509/07 Rx mg-hydrochlorothiazi de 25 mg tablet valsartan 80 mg tablet 80 mg PO DAILY #90 tabs 02/07/25 0 02/16/25 Rx albuterol 90 mcg-budesonide 80 2 inh inhalation .Q 4 hours PRN 02/16/25 Rx mcg/actuation HFA aerosol inhaler shortness of breath #10.7 grams (Airsupra) benzonatate 100 mg capsule 100 mg PO BID-TID PRN 02/16/2509/07 History benzonatate 200 mg capsule 200 mg PO TID PRN cough #21 caps 0 02/16/25 02/16/25 Rx doxycycline hyclate 100 mg capsule 100 mg PO BID #20 caps 02/16/25 02/16/25 Rx Nurse's Note: cough and congestion seen at [facility] urgent care paper work scanned REPLACED BY [facility] Medical History Seasonal allergies Morbid obesity Hypokalemia Surgical History [place] teeth extracted Family History Mother Hypertension Father Heart disease Social History Smoking Status: Former smoker alcohol intake: current details: social substance use type: does not use caffeine: Yes what type of physical activity do you participate in: none seatbelt use: always do you feel safe at home: Yes additional social history: - [employer] HPI HPI Chief Complaint: cough congestion Details: IONA WERNER, is a 54 F who presents to the office today for f/u on URI symptoms. She states that she initially was seen on 02-03 for URI symptoms after a few days. She started with a temperature and some coughing (tickle in her throat). She states that the fever lingered for a few days and resolved on that Friday. She continued to have some nasal congestion. At this time though she states that she does not have sore throat, ear pains, fevers, wheezing, shortness of breath. She states that initially they gave her some Tesselon perles for the cough which she has been taking. She states that the cough is a little worse first thing AM and when she is lying down in the evening. She states that she does not feel anything in the chest and she doesn't really get anything up when she coughs and she states that overall she feels fine just cant get rid of the cough. She denies any history of asthma, COPD or other respiratory issues. She is not a smoker nor has she been. She does have some allergies environmentally and she takes the nasacort and the zyrtec intermittently. ROS Const Constitutional: No body ache, excessive sweating, fatigue, fever(s), frequent falls, headache(s), snoring, weakness, weight change, sleep problems or change in appetite Eyes Eyes: No blurry vision, change in vision, eye pain or Light sensitivity ENT ENT: No abnormal hearing, ear or mastoid pain, tinnitus, nasal congestion, headache(s), neck pain or sore throat Resp Respiratory: No cough, shortness of breath, snoring or wheezing Cardio Cardiology: No chest pain at rest, chest pain with exertion, excessive sweating, shortness of breath, dyspnea on exertion, lightheadedness, orthopnea o (more content not included)... Normal [facility] 02-15-2025 [facility] Telephone (UCWSTR) IONA WERNER ([id number]) 1970 F Date Time Provider Department 02/15/25 DEO FOSTER [facility] During your visit today, we recorded the following information about you: Mayte Qiu RN 02/15/2025 8:56 AM Signed Patient calls to report that she continues to have cough 14 days after initial evaluation. Reviewed OV notes. Recommended patient follow up with PCP as previously recommended. Chest X-Ray results faxed to Dr. Barrera as patient requested. Reviewed care advice and OTC medication that patient could try with verbalized understanding. Notified patient that if she was not able to get into PCP and was requesting further treatment she would need to come into Urgent Care with verbalized understanding. Mayte Qiu RN Allergies As of Date: 02/15/2025 Noted Allergy Reaction DOXY (DOXYCYCLINE HYCLATE) 05/02/2005 ERYC (ERYTHROMYCIN) 05/02/2005 8 - GI Upset Comments: Can take z pack SULFA (SULFONAMIDE ANTIBIOTICS) 05/02/2005 2 - Rash Date Reviewed: 02/03/2025 Reviewed by: Aleida Nogueira MA - Fully Assessed Reason for Visit: Patient Question [2137] Results [95] Prescriptions as of 02/15/2025 - triamterene-hydroCHL OROthiazide (MAXZIDE-25) 37.5-25 mg per tablet Take 1 tablet by mouth every morning. - valsartan (DIOVAN) 80 mg tablet Take 1 tablet by mouth once daily. - cetirizine (ZYRTEC) 10 mg tablet Take 10 mg by mouth once daily. - guaiFENesin (MUCINEX) 600 mg 12 hr tablet Take 2 tablets by mouth twice daily. - mometasone (ELOCON) 0.1 % cream Apply 1 application to affected area once daily. - clotrimazole-betamet hasone (LOTRISONE) cream Apply 1 application to affected area twice daily. UNTIL CLEAR FOR UP TO 2-3 WEEKS - VITAMIN B COMPLEX ORAL Take 1 tablet by mouth once daily. - calcium (elemental) ORAL Tab Take two tablets twice daily - Ascorbic Acid (VITAMIN C) 1,000 mg ORAL Tab Take one or two daily Meds Comments as of 04/24/2007: All medications have been reviewed /April 24, 2007 Justa Kiglore [facility] Problem List As Of Date 02/15/2025 Noted Resolved DYSMETABOLIC SYNDROME X [E88.810] 07/30/2005 TOBACCO USE DISORDER [F17.200] 07/30/2005 IUD (intrauterine device) in place [Z97.5] 07/22/2012 Encounter Status:Closed by MAYTE QIU on 02/15/[address] [facility] CNCOon 02-04-2025 CNCO Letter Text [facility] CNOVon 02-03-2025 CNOV Office Visit (WOUCA) IONA WERNER ([id number]) 1970 F Date Time Provider Department 02/03/25 11:15 AM DEO FOSTER [facility] During your visit today, we recorded the following information about you: Temperature Pulse Respiration Blood pressure 100 degrees 110/minute 21/minute 140/90 Weight 122.9 kg Deo Foster PA 02/03/2025 11:56 AM Addendum - Chest X-ray performed today showed prominent fullness in the right hilum. - Contact your PCP to Schedule a CT scan of your chest with IV contrast as recommended - Begin the Medrol Dosepak now for cough relief; follow the dosing instructions provided with the prescription. - Take Tessalon Perles as needed to help suppress your cough; follow the directions on the prescription label. - Follow up with your primary care provider Deo Foster PA 02/03/2025 12:03 PM Signed [facility] Subjective Iona Werner is a 54 year old female. Patient presents with: Cough: Fever, chest congestion x 4 days HPI Cough and Fever: - Onset of cough approximately 5 days ago, followed by fever the next day. - Fever as high as 102.7 degreeF, with the most recent high of 102.6 degreeF yesterday evening. - Fever temporarily reduced to 99.3 degreeF once; currently at 100 degreeF. - Taking Advil and Tylenol to manage fever; last dose of Tylenol taken before the visit. - Denies rhinorrhea and nasal congestion; reports yellow nasal discharge. - Cough described as dry; denies productive cough. - Denies history of COPD or asthma. - Denies tobacco use. - Denies exposure to sick contacts. - Avoiding additional medications due to concerns about interactions with antihypertensive medication. Review of Systems Constitutional: (+) fever Ears/Nose/Mouth/Thro at: (+) rhinorrhea Respiratory: (+) dry cough, (-) sputum production Objective BP 140/90 Pulse 110 Temp 37.8 ?C (100 ?F) Resp 21 Wt 122.9 kg (270 lb 15.1 oz) LMP 07/10/2010 SpO2 97% BMI 48.61 kg/m? Physical Exam Vitals and nursing note reviewed. Constitutional: General: She is not in acute distress. Appearance: Normal appearance. She is not toxic-appearing. HENT: Right Ear: Tympanic membrane and ear canal normal. Left Ear: Tympanic membrane and ear canal normal. Nose: Nose normal. Mouth/Throat: Mouth: Mucous membranes are moist. Cardiovascular: Rate and Rhythm: Normal rate and regular rhythm. Pulmonary: Effort: Pulmonary effort is normal. Breath sounds: Normal breath sounds. No wheezing, rhonchi or rales. Skin: General: Skin is warm and dry. Neurological: Mental Status: She is alert. { 1. Fever, unspecified fever cause (R50.9) 2. Acute cough (R05.1) - Acute onset of dry cough and fever (up to 102.7 degreeF) for 5 days; chest X-ray reveals prominent fullness of right hilum. - Etiology likely viral; declined COVID-19 testing. - Start Tessalon Perles as cough suppressant. - Start Medrol Dosepak to help with cough. - Radiology recommend CT chest with IV contrast to further evaluate right hilar fullness; patient agreeable. - Provided written and verbal instructions regarding CT chest and need for follow-up with PCP. Recording using [employer] software for draft documentation of the visit was discussed with the patient/authorized medical customer service representative; all questions welcomed and answered. Patient/authorized medical customer service representative agreed to proceed History and Record Review External record(s) reviewed: prior outpatient record. Systemic symptoms present included: fever Differential Diagnoses - uri is more likely for the following reason(s): suggested by HANDP - pneumonia is less likely for the following reason(s): no evidence on imaging Disposition The patient was discharged. Procedures Allergies As of Date: 02/03/2025 Noted Allergy Reaction DOXY (DOXYCYCLINE HYCLATE) 05/02/2005 ERYC (ERYTHROMYCIN) 05/02/2005 8 - GI Upset Comments: Can take z pack SULFA (SULFONAMIDE ANTIBIOTICS) 05/02/2005 2 - Rash Date Reviewed: 02/03/2025 Reviewed by: Aleida Nogueira MA - Fully Assessed Reason for Visit: Cough [28] Cmt: Fever, chest congestion x 4 days Primary Visit Diagnosis:Fever, unspecified fever cause [R50.9] Other Visit Diagnosis:Acute cough [R05.1] Order(s):XR CHEST 2V FRONTAL/LAT [[id number]] Order #: [id number] FUTURE benzonatate (TESSALON PERLE) 100 mg capsuleTake 1 capsule by mouth three times a day as needed for cough for up to 7 days.Disp: 21 capsuleRfl: 0 methylPREDNISolone (MEDROL, NABILA,) 4 mg Dose-PackTake as instructed per package.Disp: 21 tabletRfl: 0 Prescriptions as of 02/03/2025 - triamterene-hydroCHL OROthiazide (MAXZIDE-25) 37.5-25 mg per tablet Take 1 tablet by mouth every morning. - valsartan (DIOVAN) 80 mg tablet Take 1 tablet by mouth once daily. - cetirizine (ZYRTEC) 10 mg tablet Take 10 mg by mouth once daily. - benzonat (more content not included)... Normal [facility] XR CHEST 2V FRONTAL/LATon XR CHEST 2V FRONTAL/LAT * * *Final Report* * * DATE OF EXAM: Feb 03 2025 11:43AM WOX 5291 - XR CHEST 2V FRONTAL/LAT / PROCEDURE REASON: multiple diagnoses * * * * Physician Interpretation * * * * EXAMINATION: CHEST RADIOGRAPH (2 VIEW FRONTAL and LATERAL) TECHNOLOGIST PROVIDED HISTORY: Acute cough and fever CLINICAL HISTORY: 54 years old Female with Acute constipation. Fever, unspecified fever cause MQ: XC2_6 EXAM DATE/TIME: 02/03/2025 11:43 AM COMPARISON: No relevant prior studies available. RESULT: Lines, tubes, and devices: None. Lungs and pleura: No apparent consolidation. No pleural effusion or pneumothorax. Cardiomediastinal silhouette: Normal heart size. Prominent fullness of the RIGHT hilum. Bones and soft tissues: Unremarkable. IMPRESSION: Prominent fullness of the RIGHT hilum. Recommend further evaluation with contrast-enhanced CT. ACTIONABLE RESULT: FOLLOW-UP Acuity: Actionable Findings: Thoracic-Other Routing Code: CT_1 Recommendation: CT Chest W IVCON Time Frame: At the discretion of the clinical team. COMMUNICATION: Results will be communicated with the ordering provider via [employer] staff message or phone message by Imaging Support Services within 2 business days of report finalization. --END OF FINDING-- Precision Layout Worker: MURIEL Transcribe Date/Time: Feb 03 2025 11:44A Dictated by : STEPHANY MARTINEZ DO This examination was interpreted and the report reviewed and electronically signed by: STEPHANY MARTINEZ DO on Feb 03 2025 11:47AM EST [id number] ACTIONABLE Invalid Interpretation Code [facility] XR Chest PA and LateralOrder ed By: [facility] Provider on 02-03-2025 Interpretation and review of laboratory results Abnormal [facility] Radiology Result ACTIONABLE Abnormal [facility] Comment on above: This report contains an incidental or actionable finding. This finding may be a new finding separate from the reason your provider ordered the imaging test or it may be an already known finding that needs additional or continued follow-up. Because of this incidental or actionable finding, you may need another test (imaging or a different type of test). Please contact your provider for the next steps. [facility] XR Chest PA and Lateralon * * *Final Report* * * DATE OF EXAM: Feb 03 2025 11:43AM WOX 5291 - XR CHEST 2V FRONTAL/LAT / PROCEDURE REASON: multiple diagnoses * * * * Physician Interpretation * * * * EXAMINATION: CHEST RADIOGRAPH (2 VIEW FRONTAL & LATERAL) TECHNOLOGIST PROVIDED HISTORY: Acute cough and fever CLINICAL HISTORY: 54 years old Female with Acute constipation. Fever, unspecified fever cause MQ: XC2_6 EXAM DATE/TIME: 02/03/2025 11:43 AM COMPARISON: No relevant prior studies available. RESULT: Lines, tubes, and devices: None. Lungs and pleura: No apparent consolidation. No pleural effusion or pneumothorax. Cardiomediastinal silhouette: Normal heart size. Prominent fullness of the RIGHT hilum. Bones and soft tissues: Unremarkable. DIVISION OF RADIOLOGY Provider, [facility] Imaging [place] - 02/03/2025 * * *Final Report* * * DATE OF EXAM: Feb 03 2025 11:43AM WOX 5291 - XR CHEST 2V FRONTAL/LAT / PROCEDURE REASON: multiple diagnoses * * * * Physician Interpretation * * * * EXAMINATION: CHEST RADIOGRAPH (2 VIEW FRONTAL & LATERAL) TECHNOLOGIST PROVIDED HISTORY: Acute cough and fever CLINICAL HISTORY: 54 years old Female with Acute constipation. Fever, unspecified fever cause MQ: XC2_6 EXAM DATE/TIME: 02/03/2025 11:43 AM COMPARISON: No relevant prior studies available. RESULT: Lines, tubes, and devices: None. Lungs and pleura: No apparent consolidation. No pleural effusion or pneumothorax. Cardiomediastinal silhouette: Normal heart size. Prominent fullness of the RIGHT hilum. Bones and soft tissues: Unremarkable. IMPRESSION IMPRESSION: Prominent fullness of the RIGHT hilum. Recommend further evaluation with contrast-enhanced CT. ACTIONABLE RESULT: FOLLOW-UP Acuity: Actionable Findings: Thoracic-Other Routing Code: CT_1 Recommendation: CT Chest W IVCON Time Frame: At the discretion of the clinical team. COMMUNICATION: Results will be communicated with the ordering provider via [employer] staff message or phone message by Imaging Support Services within 2 business days of report finalization. --END OF FINDING-- Precision Layout Worker: MURIEL Transcribe Date/Time: Feb 03 2025 11:44A Dictated by : STEPHANY MARTINEZ DO This examination was interpreted and the report reviewed and electronically signed by: STEPHANY MARTINEZ DO on Feb 03 2025 11:47AM EST [facility] Radiology Study observation (narrative) [facility] Internal Medicine Office Vis iton 11-24-2024 Internal Medicine Office Visit [facility] [address] [place], [place] [address] OFFICE VISIT Date of Service: 11/24/24 MR#: [id number] Acct: [id number] Name: IONA WERNER Rep #: [id number] : 1970 Provider: Dr. Lynn upton MD Age/Sex: 54/F Location[place] [facility] Status: Signed Intake Vital Signs 03/25/24 16:01 08/10/24 08:47 11/24/24 08:26 Height 5 ft 3 in 5 ft 3 in 5 ft 3 in Weight: 263 lb 6 oz BMI 46.6 BP 146/88 H Blood Pressure Location Lt brachial Position Sitting Respiration 16 Pulse 69 Pulse Source Monitor Temp 96.5 F L Temp Source Temporal Pulse Oximetry (%) 96 Oxygen Delivery Method room air Intake Visit Reasons: 4 M FU Chief Complaint: FU Chronic Conditions Forensic Social Worker Required: No Accompanied by: Self Is patient in pain?: No Allergies Sulfa (Sulfonamide Antibiotics) Allergy (Mild, Verified 11/24/24 08:17) Nausea/Vom/Diarrhea Medications ???Medication ???Instructions ???Recorded ???Confirmed ???Type levonorgestrel 20.4 mcg/24 hr (up 1 device intrauterine ONCE 11/24/24 History to 8 yrs) 52 mg intrauterine device (Liletta) cetirizine 10 mg capsule (Zyrtec) 10 mg PO DAILY PRN 03/27/2211/24 History collagen (bovine) 100 % topical 1 applic topical DAILY 03/19/23 History powder dietary supplement cap PO 03/19/23 11/24/24 History mometasone 0.1 % topical cream 1 applic topical DAILY PRN rash 11/24/24 Rx #45 grams triamcinolone acetonide 55 mcg 2 spray intranasal DAILY #16.9 mL 07/05/24 11/24/24 Rx nasal spray aerosol (Nasacort Allergy) triamterene 37.5 1 tab PO QAM #90 tabs 07/05/2405/10 Rx mg-hydrochlorothiazi de 25 mg tablet valsartan 80 mg tablet 80 mg PO DAILY #90 tabs 07/05/24 0 11/24/24 Rx Nurse's Note: refills needed PFSH Medical History Seasonal allergies Morbid obesity Hypokalemia Surgical History [place] teeth extracted Family History Mother Hypertension Father Heart disease Social History Smoking Status: Former smoker alcohol intake: current details: social substance use type: does not use caffeine: Yes what type of physical activity do you participate in: none seatbelt use: always do you feel safe at home: Yes additional social history: - [employer] HPI HPI Chief Complaint: FU Chronic Conditions Details: IONA WERNER, is a 54 F who presents to the office today for follow-up of her chronic medical conditions. No acute concerns at this time. History of hypertension, elevated in office however she did keep a very good log and her readings at home have ranged largely less than 120/80 mmHg. Highest home blood pressure reading was 132/89 and repeat later read on that day was 129/82 mmHg. Most readings as above less than 120. Blood pressure at home this morning was 120/76. Has been staying active. Lost some more weight since her last visit. Compliant with her medication. Other chronic medical conditions are stable. ROS Const Constitutional: No body ache, excessive sweating, fatigue, fever(s), frequent falls, headache(s), snoring, weakness, weight change, sleep problems or change in appetite Eyes Eyes: No blurry vision, change in vision, floaters, visual disturbances, eye pain or Light sensitivity ENT ENT: No abnormal hearing, ear or mastoid pain, tinnitus, balance problems, nosebleed/epistaxis, nasal congestion, headache(s), neck pain or sore throat Resp Respiratory: No cough, excessive phlegm production, pain on inspiration, shortness of breath, snoring or wheezing Cardio Cardiology: No chest pain at rest, chest pain with exertion, excessive sweating, shortness of breath, dyspnea on exertion, lightheadedness, orthopnea or palpitations Gastro GI: No abdominal pain, change in bowel habits, constipation, cramping, diarrhea, nausea/dyspepsia or vomiting Genitourinary-Female : No burning urination, painful urination, urinary incontinence, urinary frequency, blood in urine, suprapubic fullness, side pain, abnormal periods or pelvic pain Musc Musculoskeletal: No abnormal gait, joint pain, back pain, limited range of motion, neck pain, numbness, stiffness, tingling or Arthritis Skin Skin: No dry skin, redness, excessive hair growth, yellowing of the eye, lesions, itchy eyes, rash or wounds Neuro Neurology: No abnormal gait, abnormal hearing, abnormal speech, confusion, unsteady gait/balance, dizziness, weakness, frequent falls, headache(s), memory loss, numbness, tingling or visual disturbances Psych Psychiatric: No anxiety, No change in appetite, No conf (more content not included)... Normal [facility] Anion gap in Serum or Plasma Ordered By: Lynn Barrera on 10-05-2024 Anion gap [Moles/Vol] 11 mmol/L 5-15 [facility] BUN/creatinine ratioOrdered By: Lynn Barrera on 10-05-2024 Urea nitrogen/Creatinine [Mass ratio] 21.0 mg/mg High 10-20 [facility] Bilirubin, totalOrdered By: Lynn Barrera on 10-05-2024 Bilirubin [Mass/Vol] 0.32 mg/dL 0.00-1.30 [facility] Carbon dioxide, total [Moles /volume] in Central venous bloodOrdered By: Lynn Barrera on 10-05-2024 CO2 [Moles/Vol] 27.1 mmol/L 21.0-32.0 [facility] Chloride assayOrdered By: Elmer Barrera on 10-05-2024 Chloride [Moles/Vol] 101 mmol/L 98-108 [facility] GFR/1.73 sq M.predicted sandeep g non-blacks MDRD (S/P/Bld) [Vol rate/Area]Ordered By: Lynn Barrera on 10-05-2024 Estimated GFR (MDRD) Non-Af Amer 106 >60 [facility] Comment on above: mL/min/1.73m2 CKD-EP I Creatinine Equation (2020) Glomerular filtration rate ( GFR) estimation/1.73 sq m using serum, plasma, or whole bOrdered By: Lynn Barrera on 10-05-2024 GFR/1.73 sq M.predicted among non-blacks MDRD (S/P/Bld) [Vol rate/Area] 106 mL/min/{1.73_m2} >60 [facility] Comment on above: mL/min/1.73m2 CKD-EP I Creatinine Equation (2020) Laboratory - Chemistry and C hemistry - challengeOrdered By: Lynn Barrera on 10-05-2024 AST [Catalytic activity/Vol] 18 U/L <32 [facility] Potassium (Unsp spec) [Mass/ Vol]Ordered By: Lynn Barrera on 10-05-2024 Potassium [Moles/Vol] 4.5 mmol/L 3.3-5.1 [facility] Potassium measurement (mass/ volume)Ordered By: Lynn Barrera on 10-05-2024 Potassium (Unsp spec) [Mass/Vol] 4.5 mmol/L 3.3-5.1 [facility] Serum creatinine measurement (mass/volume)Ordered By: Lynn Barrera on 10-05-2024 Creatinine [Mass/Vol] 0.64 mg/dL Low 0.70-1.20 [facility] Serum globulin measurementOr dered By: Lynn Barrera on 10-05-2024 Globulin (S) [Mass/Vol] 3.1 g/dL 2.2-4.2 [facility] Serum glucose measurement (m ass/volume)Ordered By: Lynn Barrera on 10-05-2024 Glucose [Mass/Vol] 93 mg/dL 70-99 [facility] Serum or plasma alanine oleary otransferase (ALT) measurementOrdered By: Lynn Barrera on 10-05-2024 ALT [Catalytic activity/Vol] 18 U/L <35 [facility] Serum or plasma albumin zoraida urement (mass/volume)Ordered By: Lynn Barrera 10-05-2024 Albumin [Mass/Vol] 4.3 g/dL 3.5-5.0 [facility] Serum or plasma albumin/glob ulin mass ratioOrdered By: Lynn Barrera on 10-05-2024 Albumin/Globulin [Mass ratio] 1.4 {ratio} 0.9-2.4 [facility] Serum or plasma alkaline jonah sphatase measurementOrdered By: Lynn Barrera on 10-05-2024 ALP [Catalytic activity/Vol] 73 U/L 35-104 [facility] Serum or plasma calcium zoraida urement (mass/volume)Ordered By: Lynn Barrera on 04-22-2025 Calcium [Mass/Vol] 10.0 mg/dL 7.6-11.0 [facility] Serum or plasma urea nitroge n measurement (mass/volume)Ordered By: Lynn Barrera on 10-05-2024 Urea nitrogen [Mass/Vol] 14 mg/dL 4-19 [facility] Sodium levelOrdered By: Elmerautumn oli Holly on 10-05-2024 Sodium [Moles/Vol] 139 mmol/L 133-145 [facility] Total proteinOrdered By: Osvaldo bean Barrera on 10-05-2024 Protein [Mass/Vol] 7.5 g/dL 5.9-8.4 [facility] Breast imaging reportOrdered By: Jluis Wolfe on 08-10-2024 Study report [facility] Imaging Services [address] [place] [address] SCRN MAMM (CAD)W/GEOVANY BILAT MR#: [id number] Acct: [id number] Name: IONA WERNER Rep #: [id number] : 1970 F 54 From: Ronald Wolfe MD PCP: Dr. Lynn Barrera MD Status: R EG CLI Study:SCRN MAMM (CAD)W/GEOVANY BILAT Date of Exa m: 08/10/24 Exam# [id number] Ordering Dr: Merissa Smith CORE CUTTER CORE CUTTER-C PROCEDURE: SCRN MAMM (CAD)W/GEOVANY BILAT REASON FOR EXAM: F, Age 54 y/o, no family history. Routine follow-up. TECHNIQUE: Bilateral screening digital breast tomosynthesis with 2D and 3D images. Computeraided detection. COMPARISON: Prior exam(s) dating back to May 07, 2023. FINDINGS: The breasts are almost entirely fatty. Stable bilateral fat containing axillary lymph nodes. No suspicious masses, areas of developing architectural distortion, or suspicious calcifications. BI/SCRN MAMM (CAD)W/GEOVANY BILAT IMPRESSION: BI-RADS 2: BENIGN. RECOMMEND ANNUAL MAMMOGRAPHIC SCREENING. Follow-up code: Routine Follow-up The patient will be notified of the results by letter. Reading Location: [id number] CC: PAGIE Smith; Dr. Lynn Barrera MD ~ Precision Layout Worker: Signed [facility] Territory Sales Manager Office Visit Reporton 08-10-2024 Territory Sales Manager Office Visit Report [facility] [address], [address] [place] [address] OFFICE VISIT Date of Service: 08/10/24 MR#: [id number] Acct: [id number] Name: IONA WERNER Rep #: [id number] : 1970 Provider: PAIGE luna Age/Sex: 54/F Location: [facility] [place] Status: Signed Intake Vital Signs 03/25/24 16:01 08/10/24 08:37 08/10/24 08:47 Height 5 ft 3 in 5 ft 3 in 5 ft 3 in Weight: 276 lb 4 oz 267 lb 2 oz BMI 48.9 47.3 BP 130/78 H 128/76 H Blood Pressure Location Rt brachial Position Sitting Respiration 16 Pulse 73 Pulse Source Monitor Temp 96.6 F L Pulse Oximetry (%) 98 Oxygen Delivery Method room air Intake Visit Reasons: Annual (LEGAL CLERK) Chief Complaint: Annual Forensic Social Worker Required: No Is patient in pain?: No Allergies Sulfa (Sulfonamide Antibiotics) Allergy (Mild, Verified 08/10/24 08:57) Nausea/Vom/Diarrhea Medications ???Medication ???Instructions ???Recorded ???Confirmed ???Type levonorgestrel 20.4 mcg/24 hr (up 1 device intrauterine ONCE 08/10/24 History to 8 yrs) 52 mg intrauterine device (Liletta) cetirizine 10 mg capsule (Zyrtec) 10 mg PO DAILY PRN 03/27/2208/10 History collagen (bovine) 100 % topical 1 applic topical DAILY 03/19/23 History powder dietary supplement cap PO 03/19/23 08/10/24 History mometasone 0.1 % topical cream 1 applic topical DAILY PRN rash 08/10/24 Rx #45 grams triamcinolone acetonide 55 mcg 2 spray intranasal DAILY #16.9 mL 07/05/24 08/10/24 Rx nasal spray aerosol (Nasacort Allergy) triamterene 37.5 1 tab PO QAM #90 tabs 07/05/24 Rx mg-hydrochlorothiazi de 25 mg tablet valsartan 80 mg tablet 80 mg PO DAILY #90 tabs 07/05/24 0 08/10/24 Rx Is last menstrual period known: No Post menopausal: No Patient : No : No Control Method: Raoul Nurse's Note: No menses with IUD. PFSH Medical History Seasonal allergies Morbid obesity Hypokalemia Surgical History [place] teeth extracted Family History Mother Hypertension Father Heart disease Social History Smoking Status: Former smoker alcohol intake: current details: social substance use type: does not use caffeine: Yes what type of physical activity do you participate in: none seatbelt use: always do you feel safe at home: Yes additional social history: - [employer] History 1 Elective abortions Hx Para 1 Spontaneous abortions Hx # Term Pregnancies Ectopic pregnancies Hx # Pregnancies Multiple births # of living children Past Pregnancies Del. Date Name GA/Weeks Outcome Route Bth Weight Infant Gen Labor Lgth Anesthesia Del Locatn Provider FOB Unknown [place] 1997 HPI Encounter for routine gynecological examination Details: IONA WERNER is a 54 year old who presents for annual exam. Denies concerns. NO menses X 1 year. No hot flashes Last PAP: 2021 History of abnormal PAP: no Last mammogram: today, normal History of abnormal mammogram: no Colon cancer screening: encouraged Other preventative health care screenings: Holly Female Reproductive History Questions: metorrhagia: No, sexually active: Yes, dyspareunia: No and PCB: No ROS Const Constitutional: Denies fatigue, weight gain or weight loss Cardio Card: Denies chest pain Resp Resp: Denies cough or dyspnea on exertion GI GI: Denies abdominal pain, bloating, change in stool character, constipation or vomiting : Reports as per HPI; Denies difficulty voiding, pelvic pain, urinary frequency, urinary incontinence, urinary urgency, vaginal discharge or vaginal pruritus Exam Const General: cooperative, healthy appearing, no acute distress and well developed Nutritional Appearance: obese Orientation: alert, oriented to person and oriented to place [facility] Head: normal to inspection Neck Neck: normal visual inspection Thyroid: thyroid normal Lymphatic: no lymphadenopathy noted Chest Breast inspection: normal inspection of the breasts and normal inspection of the axillae Breast palpation: normal palpation of the breasts, normal palpation of the axillae and no axillary lymphadenopathy Resp Effort Inspection: normal respiratory effort GI Palpation: soft, no masses and nontender Rectal Exam: deferred External Female Exam: normal external appearance and normal appearance of the urethra Urethra: normal appearance of the urethra and normal palpation Speculum Exam - Vagina: normal appearance of the vagina and nor (more content not included)... Normal [facility] SCRN MAMM (CAD)W/GEOVANY BILATo n 08-10-2024 SCRN MAMM (CAD)W/GEOVANY BILAT [facility] Imaging Services [address] [place] [address] [id number] SCRN MAMM (CAD)W/GEOVANY BILAT MR#: [id number] Acct: [id number] Name: IONA WERNER Rep #: [id number] : 1970 F 54 From: Jluis sanders MD PCP: Dr. Lynn Barrera MD Status: REG [facility] Study: SCRN MAMM (CAD)W/GEOVANY BILAT Date of Exam: 07/18 11/07 Exam# [id number] Ordering Dr: Merissa Smith CORE CUTTER CORE CUTTER -C PROCEDURE: SCRN MAMM (CAD)W/GEOVANY BILAT REASON FOR EXAM: F, Age 54 y/o, no family history. Routine follow-up. TECHNIQUE: Bilateral screening digital breast tomosynthesis with 2D and 3D images. Computer aided detection. COMPARISON: Prior exam(s) dating back to May 07, 2023. FINDINGS: The breasts are almost entirely fatty. Stable bilateral fat containing axillary lymph nodes. No suspicious masses, areas of developing architectural distortion, or suspicious calcifications. BI/SCRN MAMM (CAD)W/GEOVANY BILAT IMPRESSION: BI-RADS 2: BENIGN. RECOMMEND ANNUAL MAMMOGRAPHIC SCREENING. Follow-up code: Routine Follow-up The patient will be notified of the results by letter. Reading Location: [id number] CC: PAIGE Smith; Dr. Lynn Barrera MD Precision Layout Worker: Signed Normal [facility] Internal Medicine Office Vis iton 07-05-2024 Internal Medicine Office Visit [facility] [address] [place] [address] [place] [address] OFFICE VISIT Date of Service: 07/05/24 MR#: [id number] Acct: [id number] Name: IONA WERNER Rep #: [id number] : 1970 Provider: Dr. Lynn upton MD Age/Sex: 54/F Location: [facility] Status: Signed Intake Vital Signs 03/25/24 15:18 03/25/24 16:01 Height 5 ft 3 in 5 ft 3 in Weight: 276 lb 4 oz BMI 48.9 BP 130/78 H Blood Pressure Location Rt brachial Position Sitting Respiration 16 Pulse 73 Pulse Source Monitor Temp 96.6 F L Temp Source Temporal Pulse Oximetry (%) 98 Oxygen Delivery Method room air Intake Visit Reasons: 3 M FU Chief Complaint: 4m f/u Forensic Social Worker Required: No Accompanied by: Self Is patient in pain?: No Allergies Sulfa (Sulfonamide Antibiotics) Allergy (Mild, Verified 07/05/24 08:32) Nausea/Vom/Diarrhea Have you fallen in the past year?: No PFSH Medical History Health care maintenance Seasonal allergies Morbid obesity Hypokalemia Surgical History [place] teeth extracted Family History Mother Hypertension Father Heart disease Social History Smoking Status: Former smoker alcohol intake: current details: social substance use type: does not use caffeine: Yes what type of physical activity do you participate in: none seatbelt use: always do you feel safe at home: Yes additional social history: - [employer] HPI HPI Chief Complaint: 4m f/u Details: IONA WERNER, is a 54 F who presents to the office today for follow-up of her chronic medical conditions. No acute concerns at this time. History of hypertension, blood pressure today at 130/78 mmHg. Readings at home have been on average, better. She restarted her dietary and lifestyle modifications and feels better overall. Other chronic medical conditions are stable. ROS Const Constitutional: No body ache, excessive sweating, fatigue, fever(s), frequent falls, headache(s), snoring, weakness, weight change, sleep problems or change in appetite Eyes Eyes: No blurry vision, change in vision, dry eyes, floaters, visual disturbances, eye pain or Light sensitivity ENT ENT: No abnormal hearing, ear or mastoid pain, tinnitus, balance problems, nosebleed/epistaxis, nasal congestion, headache(s), neck pain or sore throat Resp Respiratory: No cough, excessive phlegm production, pain on inspiration, shortness of breath, snoring or wheezing Cardio Cardiology: No chest pain at rest, chest pain with exertion, excessive sweating, shortness of breath, dyspnea on exertion, lightheadedness, orthopnea or palpitations Gastro GI: No abdominal pain, change in bowel habits, constipation, cramping, diarrhea, nausea/dyspepsia or vomiting Genitourinary-Female : No burning urination, painful urination, urinary incontinence, urinary frequency, blood in urine, suprapubic fullness, side pain, abnormal periods or pelvic pain Musc Musculoskeletal: No abnormal gait, joint pain, back pain, limited range of motion, neck pain, numbness, stiffness, tingling or Arthritis Skin Skin: No dry skin, redness, excessive hair growth, yellowing of the eye, lesions, itchy eyes, rash or wounds Neuro Neurology: No abnormal gait, abnormal hearing, abnormal speech, behavioral changes, unsteady gait/balance, dizziness, weakness, frequent falls, headache(s), memory loss, numbness, tingling or visual disturbances Psych Psychiatric: No anxiety, No behavioral changes, No change in appetite, No depression, No memory loss and No Thoughts of harming yourself/Others Endo Endocrine: No cold intolerance, excessive sweating, fatigue, flushing, heat intolerance, increased thirst/drinking, increased hunger or weight change Aller/Imm Allergy/Immunologic: No itchy eyes, seasonal allergy symptoms, hives or wheezing Stevan/Lymp Hematologic/Lymphati c: No easy bleeding, easy bruising or enlarged lymph nodes Exam Const General: cooperative, comfortable and no acute distress Orientation: alert, awake and oriented x3 HENMT Head: normal to inspection, normocephalic and atraumatic Ears: hearing grossly normal bilaterally Eyes General: appearance normal, both eyes and all related structures Neck Neck: normal visual inspection, full ROM, no lymphadenopathy and supple Neck mass: No Thyroid: thyroid normal Resp Effort Inspection: normal respiratory effort and able to speak in complete sentences Auscultation: Bilateral: Clear to Auscultation Cardio Rate: regular rate Rhythm: regular rhythm Heart Sounds: S1 normal and S2 normal GI Palpation: soft (Nontender, no palpable organomega (more content not included)... Normal [facility] CBC W/Diff, Automatedon 10- 0-2023 Absolute Lymph 2.67 X10 3/uL Normal 0.83-4.51 [facility] Comment on above: Performed By: #### L 100.0100, L500.4050, L500.4100 #### [facility] [address] [place], [address] Absolute Neut 5.1 X10 3/uL Normal 2.0-7.7 [facility] Comment on above: Performed By: #### L 100.0100, L500.4050, L500.4100 #### [facility] [address] [place], [address] Basophils/100 WBC (Bld) 0.8 % Normal 0-1 [facility] Comment on above: Performed By: #### L 100.0100, L500.4050, L500.4100 #### [facility] [address] [place], [address] Eosinophils/100 WBC (Bld) 2.2 % Normal 0-5 [facility] Comment on above: Performed By: #### L 100.0100, L500.4050, L500.4100 #### [facility] [address] [place], [address] Erythrocyte distribution width (RBC) [Ratio] 13.2 % Normal 11.6-14.6 [facility] Comment on above: Performed By: #### L 100.0100, L500.4050, L500.4100 #### [facility] [address] [place], [address] Hematocrit (Bld) [Volume fraction] 41.0 % Normal 37-47 [facility] Comment on above: Performed By: #### L 100.0100, L500.4050, L500.4100 #### [facility] [address] [place], [address] Hemoglobin (Bld) [Mass/Vol] 13.1 g/dL Normal 12.0-15.0 [facility] Comment on above: Performed By: #### L 100.0100, L500.4050, L500.4100 #### [facility] [address] [place], [address] IG% 0.500 Normal 0.0-0.9 [facility] Comment on above: Result Comment: IG% - Immature Granulocytes (promyelocytes, myelocytes and metamyelocytes) > 1% indicates that a LEFT SHIFT is Present. Performed By: #### L 100.0100, L500.4050, L500.4100 #### [facility] [address] [place], [address] Lymphocytes/100 WBC (Bld) 30.8 % Normal 19-41 [facility] Comment on above: Performed By: #### L 100.0100, L500.4050, L500.4100 #### [facility] [address] [place], [address] MCH (RBC) [Entitic mass] 29.4 pg Normal 27.0-32.0 [facility] Comment on above: Performed By: #### L 100.0100, L500.4050, L500.4100 #### [facility] [address] [place], [address] MCHC (RBC) [Mass/Vol] 32.0 g/dL Normal 32-36 [facility] Comment on above: Performed By: #### L 100.0100, L500.4050, L500.4100 #### [facility] [address] [place], [address] MCV (RBC) [Entitic vol] 91.9 fL Normal 81-99 [facility] Comment on above: Performed By: #### L 100.0100, L500.4050, L500.4100 #### [facility] [address] [place], [address] Monocytes/100 WBC (Bld) 6.4 % Normal 0-10 [facility] Comment on above: Performed By: #### L 100.0100, L500.4050, L500.4100 #### [facility] [address] [place], [address] Neutrophils/100 WBC (Bld) 59.3 % Normal 47-70 [facility] Comment on above: Performed By: #### L 100.0100, L500.4050, L500.4100 #### [facility] [address] [place], [address] Nucleated RBC (Bld) [#/Vol] 0 10*3/uL Normal 0-5 [facility] Comment on above: Performed By: #### L 100.0100, L500.4050, L500.4100 #### [facility] [address] [place] [place], [address] Platelet mean volume (Bld) [Entitic vol] 9.6 fL Normal 6.2-12.0 [facility] Comment on above: Performed By: #### L 100.0100, L500.4050, L500.4100 #### [facility] [address] [place], [address] Platelets (Bld) [#/Vol] 418 10*3/uL Normal 150-450 [facility] Comment on above: Performed By: #### L 100.0100, L500.4050, L500.4100 #### [facility] [address] [place], [address] RBC (Bld) [#/Vol] 4.46 10*6/uL Normal 4.2-5.4 [facility] Comment on above: Performed By: #### L 100.0100, L500.4050, L500.4100 #### [facility] [address] [place], [address] RDW SD 44.0 fl High 35.1-43.9 [facility] Comment on above: Performed By: #### L 100.0100, L500.4050, L500.4100 #### [facility] [address] [place], [address] WBC (Bld) [#/Vol] 8.7 10*3/uL Normal 4.4-11.0 [facility] Comment on above: Performed By: #### L 100.0100, L500.4050, L500.4100 #### [facility] [address] [place], [address] Comprehensive Metabolic Prof ilon 03-25-2024 Albumin [Mass/Vol] 3.8 g/dL Normal 3.2-5.0 [facility] Comment on above: Performed By: #### L 100.0100, L500.4050, L500.4100 #### [facility] [address] [place], [address] Albumin/Globulin [Mass ratio] 0.9 {ratio} Normal 0.9-2.4 [facility] Comment on above: Performed By: #### L 100.0100, L500.4050, L500.4100 #### [facility] [address] [place], [address] ALK P 80 U/L Normal 45-117 [facility] Comment on above: Performed By: #### L 100.0100, L500.4050, L500.4100 #### [facility] [address] [place], [address] ALT [Catalytic activity/Vol] 26 U/L Normal 13-56 [facility] Comment on above: Performed By: #### L 100.0100, L500.4050, L500.4100 #### [facility] [address] [place], [address] AST [Catalytic activity/Vol] 16 U/L Normal 15-37 [facility] Comment on above: Performed By: #### L 100.0100, L500.4050, L500.4100 #### [facility] [address] [place], [address] Bilirubin [Mass/Vol] 0.40 mg/dL Normal 0.20-1.00 [facility] Comment on above: Result Comment: For patients on eltrombopag therapy, use of Dimension [place] TBIL is not recommended. Performed By: #### L 100.0100, L500.4050, L500.4100 #### [facility] [address] [place], [address] BUN/CRE 30.0 RATIO High 10-20 [facility] Comment on above: Performed By: #### L 100.0100, L500.4050, L500.4100 #### [facility] [address] [place], [address] CA,Total 9.7 mg/dL Normal 8.5-10.1 [facility] Comment on above: Performed By: #### L 100.0100, L500.4050, L500.4100 #### [facility] [address] [place], [address] Chloride [Moles/Vol] 104 mmol/L Normal 98-107 [facility] Comment on above: Performed By: #### L 100.0100, L500.4050, L500.4100 #### [facility] [address] [place], [address] CO2 [Moles/Vol] 29.0 mmol/L Normal 21.0-32.0 [facility] Comment on above: Performed By: #### L 100.0100, L500.4050, L500.4100 #### [facility] [address] [place], [address] Creatinine [Mass/Vol] 0.67 mg/dL Normal 0.55-1.02 [facility] Comment on above: Result Comment: The validity of the calculated GFR GFRAA in patients over 70 years has not been determined. Clinical correlation is essential. Performed By: #### L 100.0100, L500.4050, L500.4100 #### [facility] [address] [place], [address] EST GFR - AA 120 mL/min Normal >60 [facility] Comment on above: Result Comment: Afri can [place] GFR Calc Performed By: #### L 100.0100, L500.4050, L500.4100 #### [facility] [address] [place], [address] GAP 5 Normal 5-15 [facility] Comment on above: Performed By: #### L 100.0100, L500.4050, L500.4100 #### [facility] [address] [place], [address] GFR/1.73 sq M.predicted among non-blacks MDRD (S/P/Bld) [Vol rate/Area] 99 mL/min/{1.73_m2} Normal >60 [facility] Comment on above: Result Comment: Non- GFR Calc Performed By: #### L 100.0100, L500.4050, L500.4100 #### [facility] [address] [place], [address] Globulin (S) [Mass/Vol] 4.1 g/dL Normal 2.2-4.2 [facility] Comment on above: Performed By: #### L 100.0100, L500.4050, L500.4100 #### [facility] [address] [place], [address] Glucose [Mass/Vol] 85 mg/dL Normal 74-106 [facility] Comment on above: Performed By: #### L 100.0100, L500.4050, L500.4100 #### [facility] [address] [place], [address] Potassium [Moles/Vol] 4.4 mmol/L Normal 3.5-5.1 [facility] Comment on above: Performed By: #### L 100.0100, L500.4050, L500.4100 #### [facility] [address] [place], [address] Sodium [Moles/Vol] 138 mmol/L Normal 136-145 [facility] Comment on above: Performed By: #### L 100.0100, L500.4050, L500.4100 #### [facility] [address] [place], [address] T PROT 7.9 g/dL Normal 6.4-8.2 [facility] Comment on above: Performed By: #### L 100.0100, L500.4050, L500.4100 #### [facility] [address] [place], [address] Urea nitrogen [Mass/Vol] 20 mg/dL High 7-18 [facility] Comment on above: Performed By: #### L 100.0100, L500.4050, L500.4100 #### [facility] [address] [place], [address] Internal Medicine Office Vis iton 03-25-2024 Internal Medicine Office Visit [facility] [address] [address] [place] [address] OFFICE VISIT Date of Service: 03/25/24 MR#: [id number] Acct: [id number] Name: IONA WERNER Rep #: [id number] : 1970 Provider: Dr. Lynn upton MD Age/Sex: 53/F Location: [facility] Status: Signed Intake Vital Signs 08/06/23 08:14 02/24/24 07:56 03/25/24 15:18 Height 5 ft 3 in 5 ft 3 in 5 ft 3 in Weight: 273 lb 4 oz BMI 48.4 BP 128/88 H Blood Pressure Location Lt brachial Position Sitting Respiration 16 Pulse 82 Pulse Source Monitor Temp 97.6 F L Temp Source Temporal Pulse Oximetry (%) 99 Oxygen Delivery Method room air Intake Visit Reasons: FU Chief Complaint: 4m f/u Forensic Social Worker Required: No Accompanied by: Self Is patient in pain?: No Allergies Sulfa (Sulfonamide Antibiotics) Allergy (Mild, Verified 03/25/24 15:13) Nausea/Vom/Diarrhea Medications ???Medication ???Instructions ???Recorded ???Confirmed ???Type levonorgestrel 20.4 mcg/24 hr (up 1 device intrauterine ONCE 08/31/20 03/25/24 History to 8 yrs) 52 mg intrauterine device (Liletta) cetirizine 10 mg capsule (Zyrtec) 10 mg PO DAILY PRN 03/27/22 03/25/24 History collagen (bovine) 100 % topical 1 applic topical DAILY 03/19/23 03/25/24 History powder dietary supplement cap PO 03/19/23 03/25/24 History mometasone 0.1 % topical cream 1 applic topical DAILY PRN rash 02/02/24 03/25/24 Rx #45 grams triamterene 37.5 1 tab PO QAM #90 tabs 02/02/24 03/25/24 Rx mg-hydrochlorothiazi de 25 mg tablet valsartan 80 mg tablet 80 mg PO DAILY #90 tabs 02/02/24 03/25/24 Rx triamcinolone acetonide 55 mcg 2 spray intranasal DAILY #16.9 mL 02/23/24 03/25/24 Rx nasal spray aerosol (Nasacort Allergy) REPLACED BY [facility] Medical History Health care maintenance Seasonal allergies Morbid obesity Hypokalemia Surgical History [place] teeth extracted Family History Mother Hypertension Father Heart disease Social History Smoking Status: Former smoker alcohol intake: current details: social substance use type: does not use caffeine: Yes what type of physical activity do you participate in: none seatbelt use: always do you feel safe at home: Yes additional social history: - [employer] HPI HPI Chief Complaint: 4m f/u Details: IONA WERNER, is a 53 F who presents to the office today for follow-up of her chronic medical conditions. No acute concerns at this time. History of hypertension, blood pressure today at 128/88 mmHg. She admits that she has not been as compliant with her diet or activity lately but reports compliance with her medication. No chest pain, palpitation or shortness of breath. Other chronic conditions are stable. ROS Const Constitutional: No body ache, chills, excessive sweating, fatigue, fever(s), frequent falls, headache(s), snoring, weakness or change in appetite Eyes Eyes: No blurry vision, change in vision, bulging eyes, floaters, eye pain or Light sensitivity ENT ENT: No abnormal hearing, ear or mastoid pain, tinnitus, balance problems, nosebleed/epistaxis, nasal congestion, headache(s), neck pain or sore throat Resp Respiratory: No cough, excessive phlegm production, pain on inspiration, shortness of breath, snoring or wheezing Cardio Cardiology: No chest pain at rest, chest pain with exertion, excessive sweating, dyspnea on exertion, lightheadedness, orthopnea or palpitations Gastro GI: No abdominal pain, change in bowel habits, constipation, cramping, diarrhea, nausea/dyspepsia or vomiting Genitourinary-Female : No burning urination, painful urination, urinary incontinence, urinary frequency, suprapubic fullness or side pain Musc Musculoskeletal: No abnormal gait, joint pain, back pain, limited range of motion, muscle weakness, neck pain or numbness Skin Skin: No dry skin, redness, excessive hair growth, yellowing of the eye, lesions, itchy eyes, rash or wounds Neuro Neurology: No abnormal gait, abnormal hearing, behavioral changes, unsteady gait/balance, weakness, frequent falls, headache(s), memory loss or numbness Psych Psychiatric: No anxiety, No behavioral changes, No change in appetite, No depression, No memory loss and No Thoughts of harming yourself/Others Endo Endocrine: No cold intolerance, excessive sweating, fatigue, flushing, heat intolerance, increased thirst/drinking or increased hunger Aller/Imm Allergy/Immunologic: No itchy eyes, seasonal allergy symptoms, hives or wheezing Stevan/Lymp Hematologic/Lymphati c: No easy bleeding or easy bruising Exam Const General: cooperative, co (more content not included)... Normal [facility] Lipid Profileon 03-25-2024 Cholesterol [Mass/Vol] 216 mg/dL High 200 [facility] Comment on above: Result Comment: <200 mg/dL Desirable 200-240 mg/dL Borderline >240 mg/dL High Risk Performed By: #### L 100.0100, L500.4050, L500.4100 #### [facility] [address] [place], [place], [id number] Cholesterol in HDL [Mass/Vol] 62 mg/dL Normal [facility] Comment on above: Result Comment: The drugs N-Acetylcysteine and Metamizole may falsely depress this assay. Reference Range HDL <40 mg/dL Low HDL Cholesterol HDL >or= 60 mg/dL High HDL Cholesterol Performed By: #### L 100.0100, L500.4050, L500.4100 #### [facility] [address] [place], [address] Cholesterol in LDL [Mass/Vol] 123 mg/dL Normal 0-130 [facility] Comment on above: Performed By: #### L 100.0100, L500.4050, L500.4100 #### [facility] [address] [place], [address] Cholesterol in VLDL [Mass/Vol] 31 mg/dL Normal 5-40 [facility] Comment on above: Performed By: #### L 100.0100, L500.4050, L500.4100 #### [facility] [address] [place], [address] Triglyceride [Mass/Vol] 154 mg/dL Normal [facility] Comment on above: Result Comment: The drugs N-Acetylcysteine and Metamizole may falsely depress this assay. Serum Triglycerides Reference Interval Normal <150 mg/dL Borderline high 150 - 199 mg/dL High 200 - 499 mg/dL Very High > or = 500 mg/dL Performed By: #### L 100.0100, L500.4050, L500.4100 #### [facility] [address] [place], [address] Absolute lymphocyte countOrd ered By: Lynn Barrera on 03-10-2023 Lymphocytes Auto (Unsp spec) [#/Vol] 1.82 10*3/uL 0.83-4.51 [facility] Basophil percentageOrdered B y: Lynn Brarera on 03-10-2023 Basophils/100 WBC (Bld) 0.5 % 0-1 [facility] Bilirubin [Mass/Vol] 0.40 mg/dL 0.20-1.00 [facility] Comment on above: For patients on eltr ombopag therapy, use of Dimension [place] TBIL is not recommended. Chloride [Moles/Vol] 105 mmol/L 98-107 [facility] Cholesterol [Mass/Vol] 189 mg/dL <200 [facility] Comment on above: <200 mg/dL Desirable 200-240 mg/dL Borderline >240 mg/dL High Risk Eosinophils/100 WBC (Bld) 2.0 % 0-5 [facility] Glucose [Mass/Vol] 105 mg/dL 74-106 [facility] Comment on above: Fasting Glucose resu lt from 100 to 125 mg/dL suggests IMPAIRED HOMEOSTASIS per A.D.A. criteria. Neutrophils (Bld) [#/Vol] 7.6 10*3/uL 2.0-7.7 [facility] Neutrophils/100 WBC (Bld) 73.3 % 47-70 [facility] Potassium [Moles/Vol] 4.7 mmol/L 3.5-5.1 [facility] Protein [Mass/Vol] 7.3 g/dL 6.4-8.2 [facility] Sodium [Moles/Vol] 139 mmol/L 136-145 [facility] Triglyceride [Mass/Vol] 112 mg/dL <199 [facility] Comment on above: The drugs N-Acetylcy steine and Metamizole may falsely depress this assay.Serum Triglycerides Reference Interval Normal <150 mg/dL Borderline high 150 - 199 mg/dL High 200 - 499 mg/dL Very High > or = 500 mg/dL WBC (Bld) [#/Vol] 10.4 10*3/uL 4.4-11.0 [facility] Blood erythrocytes count (nu mber/volume)Ordered By: Lynn Barrera on 03-10-2023 RBC (Bld) [#/Vol] 4.51 10*6/uL 4.2-5.4 [facility] Blood hemoglobin measurement (mass/volume)Ordered By: Lynn Barrera on 03-10-2023 Hemoglobin (Bld) [Mass/Vol] 13.2 g/dL 12.0-15.0 [facility] Blood lymphocytes/100 leukoc ytesOrdered By: Lynn Barrera on 03-10-2023 Lymphocytes/100 WBC (Bld) 17.6 % 19-41 [facility] Blood monocytes/100 leukocyt esOrdered By: Lynn Barrera on 03-10-2023 Monocytes/100 WBC (Bld) 6.3 % 0-10 [facility] Blood platelet mean volumeOr dered By: Lynn Barrera on 03-10-2023 Platelet mean volume (Bld) [Entitic vol] 10.0 fL 6.2-12.0 [facility] Determination of erythrocyte mean corpuscular volume (MCV)Ordered By: Lynn Barrera on 03-10-2023 MCV (RBC) [Entitic vol] 91.4 fL 81-99 [facility] Hematocrit Auto (Bld) [Volum e fraction]Ordered By: [facility] Barrera on 03-10-2023 Hematocrit (Bld) [Volume fraction] 41.2 % 37-47 [facility] Laboratory - Chemistry and C hemistry - challengeOrdered By: Lynn Barrera on 03-10-2023 ALP [Catalytic activity/Vol] 81 U/L 45-117 [facility] ALT [Catalytic activity/Vol] 23 U/L 13-56 [facility] CO2 [Moles/Vol] 33.0 mmol/L 21.0-32.0 [facility] Globulin (S) [Mass/Vol] 3.8 g/dL 2.2-4.2 [facility] Urea nitrogen/Creatinine [Mass ratio] 19.9 mg/mg 10-20 [facility] Laboratory - Hematology and Cell countsOrdered By: autumnislandtondebora Barrera on 03-10-2023 Erythrocyte distribution width (RBC) [Entitic vol] 42.0 fL 35.1-43.9 [facility] Erythrocyte distribution width (RBC) [Ratio] 12.6 % 11.6-14.6 [facility] Immature granulocytes/100 WBC (Bld) 0.300 % 0.0-0.9 [facility] Comment on above: IG% - Immature Granu locytes (promyelocytes, myelocytes and metamyelocytes) > 1% indicates that a LEFT SHIFT is Present. MCH (RBC) [Entitic mass] 29.3 pg 27.0-32.0 [facility] Nucleated RBC/100 WBC (Bld) [Ratio] 0 % 0-5 [facility] MCHC Auto (RBC) [Mass/Vol]Or dered By: Lynn Barrera on 03-10-2023 MCHC (RBC) [Mass/Vol] 32.0 g/dL 32-36 [facility] No Panel InformationOrdered By: Lynn Barrera on 03-10-2023 Estimated GFR (MDRD) Amer 104 mL/min >60 [facility] Comment on above: GFR Calc Estimated GFR (MDRD) Non-Af Amer 86 mL/min >60 [facility] Comment on above: Non- GFR Calc Platelets bldOrdered By: Osvaldo anndebora Barrera on 03-10-2023 Platelets (Bld) [#/Vol] 321 10*3/uL 150-450 [facility] Serum or plasma albumin zoraida urement (mass/volume)Ordered By: Lynn Barrera on 03-10-2023 Albumin [Mass/Vol] 3.5 g/dL 3.2-5.0 [facility] Serum or plasma albumin/glob ulin mass ratioOrdered By: Lynn Barrera on 03-10-2023 Albumin/Globulin [Mass ratio] 0.9 {ratio} 0.9-2.4 [facility] Serum or plasma calcium zoraida urement (mass/volume)Ordered By: Lynn Barrera on 03-10-2023 Calcium [Mass/Vol] 9.1 mg/dL 8.5-10.1 [facility] Serum or plasma cholesterol in HDL measurement (mass/volume)Ordered By: Lynn Barrera on 03-10-2023 Cholesterol in HDL [Mass/Vol] 56 mg/dL >40 [facility] Comment on above: The drugs N-Acetylcy steine and Metamizole may falsely depress this assay. Reference Range HDL <40 mg/dL Low HDL Cholesterol HDL >or= 60 mg/dL High HDL Cholesterol Serum or plasma cholesterol in VLDL measurement (mass/volume)Ordered By: Lynn Barrera on 03-10-2023 Cholesterol in VLDL [Mass/Vol] 22 mg/dL 5-40 [facility] Serum or plasma creatinine m easurement (mass/volume)Ordered By: Lynn Barrera on 03-10-2023 Creatinine [Mass/Vol] 0.75 mg/dL 0.55-1.02 [facility] Comment on above: The validity of the calculated GFR & GFRAA in patients over 70 years has not been determined. Clinical correlation is essential. Serum or plasma low density lipoprotein (LDL) cholesterol measurement (mass/volume)Ordered By: Lynn Barrera on 03-10-2023 Cholesterol in LDL [Mass/Vol] 111 mg/dL 0-130 [facility] Serum or plasma urea nitroge n measurement (mass/volume)Ordered By: Lynn Barrera on 03-10-2023 Urea nitrogen [Mass/Vol] 15 mg/dL 7-18 [facility] Thin prep Papanicolaou smear with manual screeningOrdered By: Lynn Barrera on 03-10-2023 Thin prep Papanicolaou smear with manual screening 11 U/L 15-37 [facility] Thin prep Papanicolaou smear with manual screening 1 5-15 [facility] Basophil percentageOrdered B y: Dr. Barrera on 08-14-2022 Chloride [Moles/Vol] 102 mmol/L 98-107 [facility] Glucose [Mass/Vol] 88 mg/dL 74-106 [facility] Potassium [Moles/Vol] 4.2 mmol/L 3.5-5.1 [facility] Sodium [Moles/Vol] 140 mmol/L 136-145 [facility] Laboratory - Chemistry and C hemistry - challengeOrdered By: Dr. Barrera on 08-14-2022 CO2 [Moles/Vol] 31.0 mmol/L 21.0-32.0 [facility] Urea nitrogen/Creatinine [Mass ratio] 13.7 mg/mg 10-20 [facility] No Panel InformationOrdered By: Dr. Barrera on 08-14-2022 Estimated GFR (MDRD) Amer 108 mL/min >60 [facility] Comment on above: GFR Calc Estimated GFR (MDRD) Non-Af Amer 89 mL/min >60 [facility] Comment on above: Non- GFR Calc Serum or plasma calcium zoraida urement (mass/volume)Ordered By: Dr. Barrera on 08-14-2022 Calcium [Mass/Vol] 10.0 mg/dL 8.5-10.1 [facility] Serum or plasma creatinine m easurement (mass/volume)Ordered By: Dr. Barrera on 08-14-2022 Creatinine [Mass/Vol] 0.73 mg/dL 0.55-1.02 [facility] Comment on above: The validity of the calculated GFR & GFRAA in patients over 70 years has not been determined. Clinical correlation is essential. Serum or plasma urea nitroge n measurement (mass/volume)Ordered By: Dr. Barrera on 08-14-2022 Urea nitrogen [Mass/Vol] 10 mg/dL 7-18 [facility] Thin prep Papanicolaou smear with manual screeningOrdered By: Dr. Barrera on 08-14-2022 Thin prep Papanicolaou smear with manual screening 7 5-15 [facility] Basophil percentageOrdered B y: Dr. Barrera on 05-08-2022 Chloride [Moles/Vol] 102 mmol/L 98-107 [facility] Glucose [Mass/Vol] 104 mg/dL 74-106 [facility] Comment on above: Fasting Glucose resu lt from 100 to 125 mg/dL suggests IMPAIRED HOMEOSTASIS per A.D.A. criteria. Potassium [Moles/Vol] 3.9 mmol/L 3.5-5.1 [facility] Sodium [Moles/Vol] 139 mmol/L 136-145 [facility] Laboratory - Chemistry and C hemistry - challengeOrdered By: Dr. Barrera on 05-08-2022 CO2 [Moles/Vol] 32.0 mmol/L 21.0-32.0 [facility] Urea nitrogen/Creatinine [Mass ratio] 19.0 mg/mg 10-20 [facility] No Panel InformationOrdered By: Dr. Barrera on 05-08-2022 Estimated GFR (MDRD) Amer 117 mL/min >60 [facility] Comment on above: GFR Calc Estimated GFR (MDRD) Non-Af Amer 97 mL/min >60 [facility] Comment on above: Non- GFR Calc Serum or plasma calcium zoraida urement (mass/volume)Ordered By: Dr. Barrera on 05-08-2022 Calcium [Mass/Vol] 10.1 mg/dL 8.5-10.1 [facility] Serum or plasma creatinine m easurement (mass/volume)Ordered By: Dr. Barrera on 05-08-2022 Creatinine [Mass/Vol] 0.68 mg/dL 0.55-1.02 [facility] Comment on above: The validity of the calculated GFR & GFRAA in patients over 70 years has not been determined. Clinical correlation is essential. Serum or plasma urea nitroge n measurement (mass/volume)Ordered By: Dr. Barrera on 05-08-2022 Urea nitrogen [Mass/Vol] 13 mg/dL 7-18 [facility] Thin prep Papanicolaou smear with manual screeningOrdered By: Dr. Barrera on 05-08-2022 Thin prep Papanicolaou smear with manual screening 5 5-15 [facility] Basophil percentageon 2021 Chloride [Moles/Vol] 103 mmol/L 98-107 [facility] Work Phone: Glucose [Mass/Vol] 125 mg/dL 74-106 [facility] Work Phone: Comment on above: Fasting Glucose resu lt from 100 to 125 mg/dL suggests IMPAIRED HOMEOSTASIS per A.D.A. criteria. Potassium [Moles/Vol] 4.0 mmol/L 3.5-5.1 [facility] Work Phone: Sodium [Moles/Vol] 137 mmol/L 136-145 [facility] Work Phone: Laboratory - Chemistry and C hemistry - challengeon 04-03-2022 CO2 [Moles/Vol] 27.0 mmol/L 21.0-32.0 [facility] Work Phone: Urea nitrogen/Creatinine [Mass ratio] 19.9 mg/mg 10- [facility] Work Phone: No Panel Informationon 04-03 Estimated GFR (MDRD) Amer 104 mL/min >60 [facility] Work Phone: Comment on above: GFR Calc Estimated GFR (MDRD) Non-Af Amer 86 mL/min >60 [facility] Work Phone: Comment on above: Non- GFR Calc Serum or plasma calcium zoraida urement (mass/volume)on 04-03-2022 Calcium [Mass/Vol] 8.9 mg/dL 8.5-10.1 [facility] Work Phone: Serum or plasma creatinine m easurement (mass/volume)on 04-03-2022 Creatinine [Mass/Vol] 0.76 mg/dL 0.55-1.02 [facility] Work Phone: Comment on above: The validity of the calculated GFR & GFRAA in patients over 70 years has not been determined. Clinical correlation is essential. Serum or plasma urea nitroge n measurement (mass/volume)on 04-03-2022 Urea nitrogen [Mass/Vol] 15 mg/dL 7-18 [facility] Work Phone: Thin prep Papanicolaou smear with manual screeningon 04-03-2022 Thin prep Papanicolaou smear with manual screening 7 5-15 [facility] Work Phone: Absolute lymphocyte counton 03-27-2022 Lymphocytes Auto (Unsp spec) [#/Vol] 2.61 10*3/uL 0.83-4.51 [facility] Work Phone: Basophil percentageon 2021 Basophils/100 WBC (Bld) 0.6 % 0-1 [facility] Work Phone: Bilirubin [Mass/Vol] 0.30 mg/dL 0.20-1.00 [facility] Work Phone: Comment on above: For patients on eltr ombopag therapy, use of Dim[place] TBIL is not recommended. Chloride [Moles/Vol] 96 mmol/L 98-107 [facility] Work Phone: Cholesterol [Mass/Vol] 182 mg/dL <200 [facility] Work Phone: Comment on above: <200 mg/dL Desirable 200-240 mg/dL Borderline >240 mg/dL High Risk Eosinophils/100 WBC (Bld) 0.7 % 0-5 [facility] Work Phone: Glucose [Mass/Vol] 106 mg/dL 74-106 [facility] Work Phone: Comment on above: Fasting Glucose resu lt from 100 to 125 mg/dL suggests IMPAIRED HOMEOSTASIS per A.D.A. criteria. Neutrophils (Bld) [#/Vol] 6.7 10*3/uL 2.0-7.7 [facility] Work Phone: Neutrophils/100 WBC (Bld) 66.1 % 47-70 [facility] Work Phone: Potassium [Moles/Vol] 2.9 mmol/L 3.5-5.1 [facility] Work Phone: Protein [Mass/Vol] 8.2 g/dL 6.4-8.2 [facility] Work Phone: [phone] Sodium [Moles/Vol] 135 mmol/L 136-145 [facility] Work Phone: [phone] Triglyceride [Mass/Vol] 121 mg/dL <199 [facility] Work Phone: Comment on above: The drugs N-Acetylcy steine and Metamizole may falsely depress this assay.Serum Triglycerides Reference Interval Normal <150 mg/dL Borderline high 150 - 199 mg/dL High 200 - 499 mg/dL Very High > or = 500 mg/dL WBC (Bld) [#/Vol] 10.1 10*3/uL 4.4-11.0 [facility] Work Phone: [phone] Blood erythrocytes count (nu mber/volume)on 03-27-2022 RBC (Bld) [#/Vol] 4.94 10*6/uL 4.2-5.4 [facility] Work Phone: Blood hemoglobin measurement (mass/volume)on 03-27-2022 Hemoglobin (Bld) [Mass/Vol] 13.9 g/dL 12.0-15.0 [facility] Work Phone: Blood lymphocytes/100 leukoc yteson 03-27-2022 Lymphocytes/100 WBC (Bld) 25.8 % 19-41 [facility] Work Phone: Blood monocytes/100 leukocyt eson 03-27-2022 Monocytes/100 WBC (Bld) 6.4 % 0-10 [facility] Work Phone: [phone] Blood platelet mean volumeon 03-27-2022 Platelet mean volume (Bld) [Entitic vol] 10.0 fL 6.2-12.0 [facility] Work Phone: Determination of erythrocyte mean corpuscular volume (MCV)on 03-27-2022 MCV (RBC) [Entitic vol] 85.4 fL 81-99 [facility] Work Phone: Hematocrit Auto (Bld) [Volum e fraction]on 03-27-2022 Hematocrit (Bld) [Volume fraction] 42.2 % 37-47 [facility] Work Phone: Laboratory - Chemistry and C hemistry - challengeon 03-27-2022 ALP [Catalytic activity/Vol] 84 U/L 45-117 [facility] Work Phone: [phone] ALT [Catalytic activity/Vol] 27 U/L 13-56 [facility] Work Phone: CO2 [Moles/Vol] 32.0 mmol/L 21.0-32.0 [facility] Work Phone: Globulin (S) [Mass/Vol] 4.5 g/dL 2.2-4.2 [facility] Work Phone: Urea nitrogen/Creatinine [Mass ratio] 19.4 mg/mg 10-20 [facility] Work Phone: Laboratory - Hematology and Cell countson 03-27-2022 Erythrocyte distribution width (RBC) [Entitic vol] 41.5 fL 35.1-43.9 [facility] Work Phone: [phone] Erythrocyte distribution width (RBC) [Ratio] 13.4 % 11.6-14.6 [facility] Work Phone: Immature granulocytes/100 WBC (Bld) 0.400 % 0.0-0.9 [facility] Work Phone: Comment on above: IG% - Immature Granu locytes (promyelocytes, myelocytes and metamyelocytes) > 1% indicates that a LEFT SHIFT is Present. MCH (RBC) [Entitic mass] 28.1 pg 27.0-32.0 [facility] Work Phone: Nucleated RBC/100 WBC (Bld) [Ratio] 0 % 0-5 [facility] Work Phone: MCHC Auto (RBC) [Mass/Vol]on 03-27-2022 MCHC (RBC) [Mass/Vol] 32.9 g/dL 32-36 [facility] Work Phone: No Panel Informationon 03-27 Estimated GFR (MDRD) Amer 110 mL/min >60 [facility] Work Phone: Comment on above: GFR Calc Estimated GFR (MDRD) Non-Af Amer 91 mL/min >60 [facility] Work Phone: Comment on above: Non- GFR Calc Thyroid Stimulating Hormone (TSH) 1.21 uIU/mL 0.358-3.74 [facility] Work Phone: Vitamin D 25-Hydroxy 30.2 ng/mL [facility] Work Phone: Comment on above: Vitamin D 25(OH) Sta tus Range Deficiency <20 ng/mL (50nmol/L) Insufficiency 20 - 30 ng/mL (50 - 75 nmol/L) Sufficiency 30 - 100 ng/mL (75 - 250 nmol/L) Toxicity >100 ng/mL (>250 nmol/L) Platelets bldon 03-27-2022 Platelets (Bld) [#/Vol] 385 10*3/uL 150-450 [facility] Work Phone: [phone] Serum or plasma albumin zoraida urement (mass/volume)on 03-27-2022 Albumin [Mass/Vol] 3.7 g/dL 3.2-5.0 [facility] Work Phone: [phone] Serum or plasma albumin/glob ulin mass ratioon 03-27-2022 Albumin/Globulin [Mass ratio] 0.8 {ratio} 0.9-2.4 [facility] Work Phone: Serum or plasma calcium zoraida urement (mass/volume)on 03-27-2022 Calcium [Mass/Vol] 9.7 mg/dL 8.5-10.1 [facility] Work Phone: [phone] Serum or plasma cholesterol in HDL measurement (mass/volume)on 03-27-2022 Cholesterol in HDL [Mass/Vol] 44 mg/dL >40 [facility] Work Phone: [phone] Comment on above: The drugs N-Acetylcy steine and Metamizole may falsely depress this assay. Reference Range HDL <40 mg/dL Low HDL Cholesterol HDL >or= 60 mg/dL High HDL Cholesterol Serum or plasma cholesterol in VLDL measurement (mass/volume)on 03-27-2022 Cholesterol in VLDL [Mass/Vol] 24 mg/dL 5-40 [facility] Work Phone: [phone] Serum or plasma creatinine m easurement (mass/volume)on 03-27-2022 Creatinine [Mass/Vol] 0.72 mg/dL 0.55-1.02 [facility] Work Phone: Comment on above: The validity of the calculated GFR & GFRAA in patients over 70 years has not been determined. Clinical correlation is essential. Serum or plasma low density lipoprotein (LDL) cholesterol measurement (mass/volume)on 03-27-2022 Cholesterol in LDL [Mass/Vol] 114 mg/dL 0-130 [facility] Work Phone: [phone] Serum or plasma urea nitroge n measurement (mass/volume)on 03-27-2022 Urea nitrogen [Mass/Vol] 14 mg/dL 7-18 [facility] Work Phone: [phone] Thin prep Papanicolaou smear with manual screeningon 03-27-2022 Thin prep Papanicolaou smear with manual screening 18 U/L 15-37 [facility] Work Phone: [phone] Thin prep Papanicolaou smear with manual screening 7 5-15 [facility] Work Phone: [phone] Cervical or vagninal specime n microscopic examination by cytology stain (reported ason 03-20-2022 Cytology report Cyto stain Doc (Cvx/Vag) Comment . [facility] Work Phone: Comment on above: The Pap smear is a s creening test designed to aid in thedetection of premalignant and malignant conditions of theuterine cervix. It is not a diagnostic procedure andshould not be used as the sole means of detecting cervicalcancer. Both false-positive and false-negative reports dooccur. Detection in cervical specim en of any of human papilloma virus (HPV) 16, 18, 31, 33,on 03-20-2022 HPV 16+18+31+33+35+39+45+5 1+52+56+58+59+66+68 DNA Probe+sig amp Ql (Cvx) Negative Negative [facility] Work Phone: Comment on above: This nucleic acid am plification test detects fourteen high- risk HPV types (16,18,31,33,35,39,45,51,52,56,58,59,66,68)without differentiation.Performed at: - [facility] [id number] Director: Flores Cerna MD, Phone: [phone] at: =[facility] [id number] Director: Flores Cerna MD, Phone: [phone] Laboratory - Cytologyon [employer] Cyto stain Nom (Cvx/Vag) [ID] Comment . [facility] Work Phone: Comment on above: Monet Dominguez, Cytot echnologist (ASCP) Laboratory - Miscellaneous t estson 03-20-2022 Service comment (Unsp spec) [Interp] Comment . [facility] Work Phone: Comment on above: This liquid based Th inPrep(R) pap test was screened withthe use of an image guided system. Service comment (Unsp spec) [Interp] . . [facility] Work Phone: No Panel Informationon 03-20 Pathology report final diagnosis Narrative Comment . [facility] Work Phone: Comment on above: NEGATIVE FOR INTRAEP ITHELIAL LESION OR MALIGNANCY. Vital Signs Date Time Vital Sign Value Performing Clinician Sharri rapp 02-16-2025 10:34-0400 Body height 160.[address] Lynn Barrera MD Work Phone: [facility] 02-16-2025 10:34-0400 Body mass index (BMI) [Ratio] 47.3 kg/m2 Dr. Lynn Barrera MD Work Phone: [facility] 02-16-2025 10:34-0400 Body temperature 98.1 [degF] Dr. Lynn Barrera MD Work Phone: [facility] 02-16-2025 10:34-0400 Body weight 121.[address] Lynn Barrera MD Work Phone: [facility] 02-16-2025 10:34-0400 Diastolic blood pressure 78 mm[Hg] Dr. Lynn Barrera MD Work Phone: [facility] 02-16-2025 10:34-0400 Heart rate 87 /min Dr. Lynn Barrera MD Work Phone: [facility] 02-16-2025 10:34-0400 Respiratory rate 16 /min Dr. Lynn Barrera MD Work Phone: [facility] 02-16-2025 10:34-0400 SaO2% (BldA) [Mass fraction] 97 % Dr. Lynn Barrera MD Work Phone: [facility] 02-16-2025 10:34-0400 Systolic blood pressure 124 mm[Hg] Dr. Lynn Barrera MD Work Phone: [facility] 02-03-2025 11:04-0400 Body mass index (BMI) [Ratio] 48.61 kg/m2 Deo GRIFFITH Work Phone: [facility] 02-03-2025 11:04-0400 Body temperature 100 [degF] Krislyn Aberegg PA Work Phone: [facility] 02-03-2025 11:04-0400 Body weight 122.9 kg Krislyn Aberegg PA Work Phone: [facility] 02-03-2025 11:04-0400 Diastolic blood pressure 90 mm[Hg] Krislyn Aberegg PA Work Phone: [facility] 02-03-2025 11:04-0400 Heart rate 110 /min Krislyn Aberegg PA Work Phone: [facility] 02-03-2025 11:04-0400 Respiratory rate 21 /min Krislyn Aberegg PA Work Phone: [facility] 02-03-2025 11:04-0400 SaO2% (BldA) [Mass fraction] 97 % Krislyn Aberegg PA Work Phone: [facility] 02-03-2025 11:04-0400 Systolic blood pressure 140 mm[Hg] Krislyn Aberegg PA Work Phone: [facility] 11-24-2024 08:26-0400 Body height 160.[address] Lynn Barrera MD Work Phone: [facility] 11-24-2024 08:26-0400 Body mass index (BMI) [Ratio] 46.6 kg/m2 Dr. Lynn Barrera MD Work Phone: [facility] 11-24-2024 08:26-0400 Body temperature 96.5 [degF] Dr. Lynn Barrera MD Work Phone: [facility] 11-24-2024 08:26-0400 Body weight 119.[address] Lynn Barrera MD Work Phone: [facility] 11-24-2024 08:26-0400 Diastolic blood pressure 88 mm[Hg] Dr. Lynn Barrera MD Work Phone: [facility] 11-24-2024 08:26-0400 Heart rate 69 /min Dr. Lynn Barrera MD Work Phone: [facility] 11-24-2024 08:26-0400 Respiratory rate 16 /min Dr. Lynn Barrera MD Work Phone: [facility] 11-24-2024 08:26-0400 SaO2% (BldA) [Mass fraction] 96 % Dr. Lynn Barrera MD Work Phone: [facility] 11-24-2024 08:26-0400 Systolic blood pressure 146 mm[Hg] Dr. Lynn Barrera MD Work Phone: [facility] 08-10-2024 08:47-0500 Body height 160.[address] Lynn Barrera MD Work Phone: [facility] 08-10-2024 08:37-0500 Body mass index (BMI) [Ratio] 47.3 kg/m2 Dr. Lynn Barrera MD Work Phone: [facility] 08-10-2024 08:37-0500 Body weight 121.[address] Lynn Brarera MD Work Phone: [facility] 08-10-2024 08:37-0500 Diastolic blood pressure 76 mm[Hg] Dr. Lynn Barrera MD Work Phone: [facility] 08-10-2024 08:37-0500 Systolic blood pressure 128 mm[Hg] Dr. Lynn Barrera MD Work Phone: [facility] 03-25-2024 16:01-0400 Body mass index (BMI) [Ratio] 48.9 kg/m2 Dr. Lynn Barrera MD Work Phone: [facility] 03-25-2024 16:01-0400 Body temperature 96.6 [degF] Dr. Lynn Barrera MD Work Phone: [facility] 03-25-2024 16:01-0400 Body weight 125.[address] Lynn Barrera MD Work Phone: [facility] 03-25-2024 16:01-0400 Diastolic blood pressure 78 mm[Hg] Dr. Lynn Barrera MD Work Phone: [facility] 03-25-2024 16:01-0400 Heart rate 73 /min Dr. Lynn Barrera MD Work Phone: [facility] 03-25-2024 16:01-0400 Respiratory rate 16 /min Dr. Lynn Barrera MD Work Phone: [facility] 03-25-2024 16:01-0400 SaO2% (BldA) [Mass fraction] 98 % Dr. Lynn Barrera MD Work Phone: [facility] 03-25-2024 16:01-0400 Systolic blood pressure 130 mm[Hg] Dr. Lynn Barrera MD Work Phone: [facility] 05-07-2023 08:04-0500 Body height 160.[address] Lynn Barrera Work Phone: [facility] 05-07-2023 08:04-0500 Body mass index (BMI) [Ratio] 42.9 kg/m2 Dr. Lynn Barrera Work Phone: [facility] 05-07-2023 08:04-0500 Body weight 109.[address] Lynn Barrera Work Phone: [facility] 05-07-2023 08:04-0500 Diastolic blood pressure 82 mm[Hg] Dr. Lynn Barrera Work Phone: [facility] 05-07-2023 08:04-0500 Heart rate 70 /min Dr. Lynn Barrera Work Phone: [facility] 05-07-2023 08:04-0500 Respiratory rate 16 /min Dr. Lynn Barrera Work Phone: [facility] 05-07-2023 08:04-0500 Systolic blood pressure 148 mm[Hg] Dr. Lynn Barrera Work Phone: [facility] 03-19-2023 08:10-0400 Body mass index (BMI) [Ratio] 42.8 kg/m2 Dr. Lynn Barrera Work Phone: [facility] 03-19-2023 08:10-0400 Body temperature 97.1 [degF] Dr. Lynn Barrera Work Phone: [facility] 03-19-2023 08:10-0400 Body weight 109.[address] Lynn Barrera Work Phone: [facility] 03-19-2023 08:10-0400 Diastolic blood pressure 86 mm[Hg] Dr. Lynn Barrera Work Phone: [facility] 03-19-2023 08:10-0400 Heart rate 68 /min Dr. Lynn Barrera Work Phone: [facility] 03-19-2023 08:10-0400 Respiratory rate 16 /min Dr. Lynn Barrera Work Phone: [facility] 03-19-2023 08:10-0400 SaO2% (BldA) [Mass fraction] 97 % Dr. Lynn Barrera Work Phone: [facility] 03-19-2023 08:10-0400 Systolic blood pressure 130 mm[Hg] Dr. Lynn Barrera Work Phone: [facility] 03-14-2023 08:13-0400 Body temperature 98.4 [degF] Dr. Lynn Barrera Work Phone: [facility] 09-29-2023 08:13-0400 Diastolic blood pressure 87 mm[Hg] Dr. Lynn Barrera Work Phone: [facility] 03-14-2023 08:13-0400 Heart rate 78 /min Dr. Lynn Barrera Work Phone: [facility] 03-14-2023 08:13-0400 Respiratory rate 12 /min Dr. Lynn Barrera Work Phone: [facility] 03-14-2023 08:13-0400 SaO2% (BldA) [Mass fraction] 93 % Dr. Lynn Barrera Work Phone: [facility] 03-14-2023 08:13-0400 Systolic blood pressure 152 mm[Hg] Dr. Lynn Barrera Work Phone: [facility] 08-14-2022 09:42-0500 Body height 160.[address] Lynn Barrera Work Phone: [facility] 08-14-2022 09:42-0500 Body mass index (BMI) [Ratio] 47.5 kg/m2 Dr. Lynn Barrera Work Phone: [facility] 08-14-2022 09:42-0500 Body temperature 97.6 [degF] Dr. Lynn Barrera Work Phone: [facility] 08-14-2022 09:42-0500 Body weight 121.[address] Lynn Barrera Work Phone: [facility] 08-14-2022 09:42-0500 Diastolic blood pressure 92 mm[Hg] Dr. Lynn Barrera Work Phone: [facility] 08-14-2022 09:42-0500 Heart rate 80 /min Dr. Lynn Barrera Work Phone: [facility] 08-14-2022 09:42-0500 Respiratory rate 18 /min Dr. Lynn Barrera Work Phone: [facility] 08-14-2022 09:42-0500 SaO2% (BldA) [Mass fraction] 99 % Dr. Lynn Barrera Work Phone: [facility] 08-14-2022 09:42-0500 Systolic blood pressure 136 mm[Hg] Dr. Lynn Barrera Work Phone: [facility] 05-08-2022 10:00-0500 Diastolic blood pressure 100 mm[Hg] No Primary Care Physician [facility] 05-08-2022 10:00-0500 Heart rate 97 /min No Primary Care Physician [facility] 05-08-2022 10:00-0500 Systolic blood pressure 179 mm[Hg] No Primary Care Physician [facility] 05-08-2022 09:49-0500 Body height 160.02 cm No Primary Care Physician [facility] Work Phone: 05-08-2022 09:49-0500 Body mass index (BMI) [Ratio] 52.4 kg/m2 No Primary Care Physician [facility] 05-08-2022 09:49-0500 Body temperature 98 [degF] No Primary Care Physician [facility] 05-08-2022 09:49-0500 Body weight 134.26 kg No Primary Care Physician [facility] 05-08-2022 09:49-0500 Respiratory rate 16 /min No Primary Care Physician [facility] 05-08-2022 09:49-0500 SaO2% (BldA) [Mass fraction] 99 % No Primary Care Physician [facility] 03-27-2022 09:25-0400 Body mass index (BMI) [Ratio] 51.3 kg/m2 No Primary Care Physician [facility] Work Phone: 03-27-2022 09:25-0400 Body temperature 98.1 [degF] No Primary Care Physician [facility] Work Phone: 03-27-2022 09:25-0400 Body weight 131.54 kg No Primary Care Physician [facility] Work Phone: 03-27-2022 09:25-0400 Diastolic blood pressure 98 mm[Hg] No Primary Care Physician [facility] Work Phone: 03-27-2022 09:25-0400 Heart rate 92 /min No Primary Care Physician [facility] Work Phone: 03-27-2022 09:25-0400 Respiratory rate 14 /min No Primary Care Physician [facility] Work Phone: 03-27-2022 09:25-0400 SaO2% (BldA) [Mass fraction] 97 % No Primary Care Physician [facility] Work Phone: 03-27-2022 09:25-0400 Systolic blood pressure 182 mm[Hg] No Primary Care Physician [facility] Work Phone: 03-20-2022 08:48-0400 Body height 160.02 cm No Primary Care Physician [facility] Work Phone: 03-20-2022 08:48-0400 Body mass index (BMI) [Ratio] 52.9 kg/m2 No Primary Care Physician [facility] Work Phone: 03-20-2022 08:48-0400 Body weight 135.68 kg No Primary Care Physician [facility] Work Phone: 03-20-2022 08:48-0400 Diastolic blood pressure 107 mm[Hg] No Primary Care Physician [facility] Work Phone: 03-20-2022 08:48-0400 Systolic blood pressure 175 mm[Hg] No Primary Care Physician [facility] Work Phone: Encounters Encounter Date Encounter Type Care Provider Facility Start: 03-02-2025 ambulatory Lynn Mann ty:[facility] Start: 02-16-2025 End: 02-16-2025 Patient encounter procedure Nikos GRIFFITH -[facility] Work Phone: Start: 02-16-2025 End: 02-16-[address] Lynn Barrera MD Work Phone: -[facility] Start: 02-15-2025 End: 02-15-2025 Telephone encounter Deo GRIFFITH Work Phone: [facility] Comment on above: Patient Question; Cristina gomez Start: 02-03-2025 End: 02-03-2025 Patient encounter procedure Deo GRIFFITH Work Phone: [facility] [place] Comment on above: Fever, unspecified f ever cause (Primary Dx); Acute cough Start: 02-03-2025 End: 02-03-2025 Subsequent hospital visit by physician Xr [facility] Work Phone: Radiology Comment on above: Acute constipation [ K59.00] Start: 02-03-2025 End: 02-03-2025 ambulatory LYNN BARRERA Facility:[facility] Start: 11-24-2024 End: 11-24-[address] Lynn Barrera MD -[facility] Work Phone: Start: 11-24-2024 End: 11-24-[address] Lynn Barrera MD Work Phone: [facility] Work Phone: Start: 10-05-2024 End: 10-05-[address] Lynn Barrera MD Work Phone: [facility] Work Phone: Start: 10-05-2024 End: 10-05-[address] Lynn Barrera MD -Laboratory, [place] Start: 10-05-2024 End: 10-05-2024 ambulatory yLnn Barrera Facility:[facility] Start: 08-10-2024 Encounter for gynecological examination (general) (routine) without abnormal findings Merissa Smith NP [facility] Start: 08-10-2024 End: 08-10-2024 Patient encounter status Merissa Smith CORE CUTTER-[facility] Start: 08-10-2024 End: 08-10-[address] Lynn Barrera MD Work Phone: [facility] Work Phone: Start: 08-10-2024 End: 08-10-2024 Patient encounter procedure Merissa Smith NP-[facility] -[facility] Work Phone: Start: 08-10-2024 End: 08-10-2024 ambulatory Merissa Smith CORE CUTTER Facility:[facility] Start: 07-05-2024 End: 07-05-[address] Lynn Barrera MD -[facility] Work Phone: Start: 07-05-2024 End: 07-05-2024 ambulatory Radha Holly Facility:[facility] Start: 03-25-2024 End: 03-25-2024 ambulatory Zaraislandtondebora Barrera Facility[facility] Start: 03-25-2024 End: 03-25-2024 ambulatory [facility] [place] Facility:[facility] Start: 05-07-2023 End: 05-07-[address] Lynn Barrera Work Phone: [facility] Work Phone: Start: 05-07-2023 End: 05-07-[address] Lynn Barrera Work Phone: [facility] Work Phone: Start: 03-19-2023 End: 03-19-[address] Lynn Barrera Work Phone: [facility] Work Phone: Start: 03-14-2023 End: 03-14-[address] Lynn Barrera Work Phone: [facility] Work Phone: Start: 03-10-2023 End: 03-10-[address] Lynn Barrera Work Phone: [facility] [place] Start: 08-14-2022 End: 08-14-[address] Lynn Barrera Work Phone: [facility] Work Phone: Start: 08-14-2022 End: 08-14-[address] Lynn Barrera Work Phone: [facility] Start: 05-08-2022 End: 05-08-2022 ambulatory No Primary Care Physician [facility] Work Phone: Start: 05-08-2022 End: 05-08-2022 Patient encounter procedure No Primary Care Physician [facility] Start: 04-03-2022 End: 04-03-2022 Patient encounter procedure No Primary Care Physician [facility] [place] Start: 03-27-2022 End: 03-27-2022 Patient encounter procedure No Primary Care Physician [facility] Start: 03-20-2022 End: 03-20-2022 ambulatory No Primary Care Physician [facility] Work Phone: Start: 03-20-2022 End: 03-20-2022 Patient encounter procedure No Primary Care Physician [facility] Procedures Date Procedure Procedure Detail Performing Clinician Start: 02-03-2025 Radiologic exam ches t 2 views Deo GRIFFITH Work Phone: Start: 08-10-2024 Screening mammography Cm Barrera MD Work Phone: Start: 05-07-2023 Screening mammography Cm Barrera Work Phone: Start: 03-20-2022 Screening mammography N o Primary Care Physician Plan of Treatment Date Care Activity Detail Author Start: 01-11-2028 Screening for malignant neoplasm of colon [facility] Start: 02-14-2025 Influenza vaccination Influenza Vaccine (#1) [facility] Start: 05-07-2023 Patient referral [facility] Work Phone: Start: 2022 Pneumococcal Vaccine: 50+ (1 of 1 - PCV) Pneumococcal Vaccine: 50+ (1 of 1 - PCV) [facility] Start: 2022 Shingrix Vaccine (1 of 2) Shingrix Vaccine (1 of 2) [facility] Start: 03-20-2022 Patient referral [facility] Work Phone: Start: 03-20-2022 Liquid based cervical cytology screening [facility] Work Phone: Start: 10-24-2017 Screening for malignant neoplasm of breast Mammogram Screening [facility] Start: 07-22-2017 Screening for malignant neoplasm of cervix Cervical Cancer Screening [facility] Start: 2017 Diabetes Screening Diabetes Screening [facility] Start: 2017 Lipid panel Lipid Screening [facility] Start: 2017 Screening for malignant neoplasm of colon [facility] Start: 1991 Hepatitis B Vaccine (1 of 3 - 19+ 3-dose series) Hepatitis B Vaccine (1 of 3 - 19+ 3-dose series) [facility] Start: 1991 Urine microalbumin profile DTaP,Tdap,Td Vaccine (1 - Tdap) [facility] Start: 1990 Anxiety Screening Anxiety Screening [facility] Start: 1990 Depression Screening Depression Screening [facility] Start: 1990 Hepatitis C screening Hepatitis C Screening [facility] Start: 1990 HIV screening HIV Screening [facility] Complete blood count [facility] Work Phone: Comprehensive metabo lic 2000 panel - Serum or Plasma [facility] CT Chest W contrast IV Woost er [facility] Electrocardiographic procedure [facility] Work Phone: Glucose [Mass/volume ] in Serum or Plasma [facility] Work Phone: Lipid 1996 panel - S raysa or Plasma [facility] Work Phone: MG Breast - bilatera l Screening [facility] Work Phone: Path report.final Dx Spec [facility] Work Phone: Patient referral [facility] Work Phone: Thyroid stimulating hormone measurement [facility] Work Phone: Urinalysis macro (di pstick) panel - Urine [facility] Work Phone: Vitamin D, 25-hydrox y measurement [facility] Work Phone: Payers Date Payer Category Payer Self-pay [id number] 2019 Private Health Insurance [employer] PPO [id number] 2019 Unknown [id number] Unknown [employer] OTHER [id number] Unknown [id number] Unknown [id number] Unknown [id number] Unknown [id number] Unknown [id number] Unknown [id number] Unknown [id number] Unknown [id number] Unknown [id number] Social History Date Type Detail Facility Start: 03-20-2022 End: 05-07-2023 Tobacco smoking status WYIS Unknown if ever smoked [facility] Start: 1970 Sex Assigned At Female [facility] Start: 03-25-2024 [facility] Start: 08-22-2024 End: 10-08-2024 Sex Female (finding) [facility] Start: 07-22-2012 Tobacco smoking stat [facility] Smokes tobacco daily [facility] History of tobacco use Cigarette Smoker [facility] Start: 07-22-2012 End: 05-24-2020 Cigarettes smoked current (pack per day) - Reported 0.5 [facility] Start: 07-22-2012 Tobacco use and exposure Smokeless tobacco non-user [facility] Start: 03-30-2018 Alcoholic beverage intake Current drinker of alcohol (finding) [facility] Start: 03-30-2018 End: 05-24-2020 Tobacco use panel [facility] Start: 05-17-2012 National Score (1-10 0), lower number is lower risk Not on file [facility] Start: 10-24-2016 Alcohol Comment occ [facility] Start: 1970 Sex assigned at Not on file [facility] Functional Status Date Assessment Result Facility 09-22-2014 Are you deaf, or do you have serious difficulty hearing No 09/22/2014 8:32 AM Elsa Delcid MA No [facility] 09-22-2014 Are you blind, or do you have serious difficulty seeing, even when wearing glasses No 09/22/2014 8:32 AM Elsa Delcid MA No [facility] 09-22-2014 Do you have serious difficulty walking or climbing stairs No 09/22/2014 8:32 AM Elsa Delcid MA No [facility] 09-22-2014 Do you have difficul ty dressing or bathing No 09/22/2014 8:32 AM EDT Elsa Melendez MA No [facility] 09-22-2014 Because of a physica l, mental, or emotional condition, do you have difficulty doing errands alone such as visiting a physician's office or shopping No 09/22/2014 8:32 AM EDT Elsa Melendez MA No [facility] Mental Status Date Assessment Result Facility 09-22-2014 Because of a physica l, mental, or emotional condition, do you have serious difficulty concentrating, remembering, or making decisions No 09/22/2014 8:32 AM EDT Elsa Melendez MA No [facility] Clinical Notes 03-20-2022 to 02-15-2025 Telephone Encounter - Mayte Qiu RN - 02/15/2025 8:53 AM EDTTelephone Encounter - Mayte Qiu RN - 02/15/2025 8:53 AM Deo Allen PA - 02/03/2025 12:01 PM EDT Note Date & Type Note Facility 02-15-2025 Telephone encounter Note Patient calls to report that she continues to have cough 14 days after initial evaluation. Reviewed OV notes. Recommended patient follow up with PCP as previously recommended. Chest X-Ray results faxed to Dr. Barrera as patient requested. Reviewed care advice and OTC medication that patient could try with verbalized understanding. Notified patient that if she was not able to get into PCP and was requesting further treatment she would need to come into Urgent Care with verbalized understanding. Mayte Qiu RN [facility] 02-15-2025 Miscellaneous Notes Patient calls to report that she continues to have cough 14 days after initial evaluation. Reviewed OV notes. Recommended patient follow up with PCP as previously recommended. Chest X-Ray results faxed to Dr. Barrera as patient requested. Reviewed care advice and OTC medication that patient could try with verbalized understanding. Notified patient that if she was not able to get into PCP and was requesting further treatment she would need to come into Urgent Care with verbalized understanding. Mayte Qiu RN documented in this encounter [facility] 02-03-2025 Note HNO ID: [id number] Author: DEO FOSTER PA Service: ? Author Type: Physician Administrative Support Clerk Type: Progress Notes Filed: 02/03/2025 12:03 Note Text: [facility] Subjective Iona Werner is a 54 year old female. Patient presents with: Cough: Fever, chest congestion x 4 days HPI Cough and Fever: - Onset of cough approximately 5 days ago, followed by fever the next day. - Fever as high as 102.7 degreeF, with the most recent high of 102.6 degreeF yesterday evening. - Fever temporarily reduced to 99.3 degreeF once; currently at 100 degreeF. - Taking Advil and Tylenol to manage fever; last dose of Tylenol taken before the visit. - Denies rhinorrhea and nasal congestion; reports yellow nasal discharge. - Cough described as dry; denies productive cough. - Denies history of COPD or asthma. - Denies tobacco use. - Denies exposure to sick contacts. - Avoiding additional medications due to concerns about interactions with antihypertensive medication. Review of Systems Constitutional: (+) fever Ears/Nose/Mouth/Throat: (+) rhinorrhea Respiratory: (+) dry cough, (-) sputum production Objective BP 140/90 Pulse 110 Temp 37.8 ?C (100 ?F) Resp 21 Wt 122.9 kg (270 lb 15.1 oz) LMP 07/10/2010 SpO2 97% BMI 48.61 kg/m? Physical Exam Vitals and nursing note reviewed. Constitutional: General: She is not in acute distress. Appearance: Normal appearance. She is not toxic-appearing. HENT: Right Ear: Tympanic membrane and ear canal normal. Left Ear: Tympanic membrane and ear canal normal. Nose: Nose normal. Mouth/Throat: Mouth: Mucous membranes are moist. Cardiovascular: Rate and Rhythm: Normal rate and regular rhythm. Pulmonary: Effort: Pulmonary effort is normal. Breath sounds: Normal breath sounds. No wheezing, rhonchi or rales. Skin: General: Skin is warm and dry. Neurological: Mental Status: She is alert. { 1. Fever, unspecified fever cause (R50.9) 2. Acute cough (R05.1) - Acute onset of dry cough and fever (up to 102.7 degreeF) for 5 days; chest X-ray reveals prominent fullness of right hilum. - Etiology likely viral; declined COVID-19 testing. - Start Tessalon Perles as cough suppressant. - Start Medrol Dosepak to help with cough. - Radiology recommend CT chest with IV contrast to further evaluate right hilar fullness; patient agreeable. - Provided written and verbal instructions regarding CT chest and need for follow-up with PCP. Recording using [employer] software for draft documentation of the visit was discussed with the patient/authorized medical customer service representative; all questions welcomed and answered. Patient/authorized medical customer service representative agreed to proceed History and Record Review External record(s) reviewed: prior outpatient record. Systemic symptoms present included: fever Differential Diagnoses - uri is more likely for the following reason(s): suggested by HANDP - pneumonia is less likely for the following reason(s): no evidence on imaging Disposition The patient was discharged. Procedures [facility] 02-03-2025 History of Presen t illness Narrative [facility] Subjective Iona Werner is a 54 year old female. Patient presents with: Cough: Fever, chest congestion x 4 days HPI Cough and Fever: - Onset of cough approximately 5 days ago, followed by fever the next day. - Fever as high as 102.7 degreeF, with the most recent high of 102.6 degreeF yesterday evening. - Fever temporarily reduced to 99.3 degreeF once; currently at 100 degreeF. - Taking Advil and Tylenol to manage fever; last dose of Tylenol taken before the visit. - Denies rhinorrhea and nasal congestion; reports yellow nasal discharge. - Cough described as dry; denies productive cough. - Denies history of COPD or asthma. - Denies tobacco use. - Denies exposure to sick contacts. - Avoiding additional medications due to concerns about interactions with antihypertensive medication. Review of Systems Constitutional: (+) fever Ears/Nose/Mouth/Throat: (+) rhinorrhea Respiratory: (+) dry cough, (-) sputum production Objective BP 140/90 Pulse 110 Temp 37.8 C (100 F) Resp 21 Wt 122.9 kg (270 lb 15.1 oz) LMP 07/10/2010 SpO2 97% BMI 48.61 kg/m Physical Exam Vitals and nursing note reviewed. Constitutional: General: She is not in acute distress. Appearance: Normal appearance. She is not toxic-appearing. HENT: Right Ear: Tympanic membrane and ear canal normal. Left Ear: Tympanic membrane and ear canal normal. Nose: Nose normal. Mouth/Throat: Mouth: Mucous membranes are moist. Cardiovascular: Rate and Rhythm: Normal rate and regular rhythm. Pulmonary: Effort: Pulmonary effort is normal. Breath sounds: Normal breath sounds. No wheezing, rhonchi or rales. Skin: General: Skin is warm and dry. Neurological: Mental Status: She is alert. { 1. Fever, unspecified fever cause (R50.9) 2. Acute cough (R05.1) - Acute onset of dry cough and fever (up to 102.7 degreeF) for 5 days; chest X-ray reveals prominent fullness of right hilum. - Etiology likely viral; declined COVID-19 testing. - Start Tessalon Perles as cough suppressant. - Start Medrol Dosepak to help with cough. - Radiology recommend CT chest with IV contrast to further evaluate right hilar fullness; patient agreeable. - Provided written and verbal instructions regarding CT chest and need for follow-up with PCP. Recording using [employer] software for draft documentation of the visit was discussed with the patient/authorized medical customer service representative; all questions welcomed and answered. Patient/authorized medical customer service representative agreed to proceed History and Record Review External record(s) reviewed: prior outpatient record. Systemic symptoms present included: fever Differential Diagnoses - uri is more likely for the following reason(s): suggested by H&P - pneumonia is less likely for the following reason(s): no evidence on imaging Disposition The patient was discharged. Procedures documented in this encounter [facility] 02-03-2025 Instructions Deo Foster PA - 02/03/2025 11:55 AM EDT - Chest X-ray performed today showed prominent fullness in the right hilum. - Contact your PCP to Schedule a CT scan of your chest with IV contrast as recommended - Begin the Medrol Dosepak now for cough relief; follow the dosing instructions provided with the prescription. - Take Tessalon Perles as needed to help suppress your cough; follow the directions on the prescription label. - Follow up with your primary care provider documented in this encounter [facility] 02-03-2025 Note IMPRESSION: Prominent fullness of the RIGHT hilum. Recommend further evaluation with contrast-enhanced CT. ACTIONABLE RESULT: FOLLOW-UP Acuity: Actionable Findings: Thoracic-Other Routing Code: CT_1 Recommendation: CT Chest W IVCON Time Frame: At the discretion of the clinical team. COMMUNICATION: Results will be communicated with the ordering provider via [employer] staff message or phone message by Imaging Support Services within 2 business days of report finalization. --END OF FINDING-- Precision Layout Worker: MURIEL Transcribe Date/Time: Feb 03 2025 11:44A Dictated by : STEPHANY MARTINEZ DO This examination was interpreted and the report reviewed and electronically signed by: STEPHANY MARTINEZ DO on Feb 03 2025 11:47AM [facility] DIVISION OF RADIOLOGY 02-03-2025 History of Presen t illness Narrative Radiology Service Progress Note PATIENT NAME: Iona Werner DATE OF SERVICE: February 03, 2025 TIME: 11:35 AM PATIENT IDENTITY VERIFICATION COMPLETED USING TWO (2) IDENTIFIERS: Name and Date of confirmed by patient verbally. FALL SCREENING: Has the patient had 2 falls in the last year or 1 fall with injury or currently using an Ambulatory Assistive Device (Walker, Cane, Wheelchair, Crutches, etc.)? No PATIENT GENDER DATA: Assigned female at . status: : No status: NO. PATIENT RELEVANT IMPLANT DATA REVIEWED: Yes PATIENT PRESENTS WITH AN IMPLANTABLE OR ATTACHED HOME HEALTH CARE WORKER: No RADIOLOGY DEPARTMENT: General X-ray: Exam(s) Completed: Chest X-Ray PERIPHERAL IV DATA: Not applicable SIGNED BY: RT Linette(R) February 03, 2025 11:35 AM documented in this encounter [facility] 02-03-2025 Note HNO ID: [id number] Author: MATTEO WAKEFIELD RT(R) Service: ? Author Type: Cargo Trimmer Type: Progress Notes Filed: 02/03/2025 11:43 Note Text: Radiology Service Progress Note PATIENT NAME: Iona Werner DATE OF SERVICE: February 03, 2025 TIME: 11:35 AM PATIENT IDENTITY VERIFICATION COMPLETED USING TWO (2) IDENTIFIERS: Name and Date of confirmed by patient verbally. FALL SCREENING: Has the patient had 2 falls in the last year or 1 fall with injury or currently using an Ambulatory Assistive Device (Walker, Cane, Wheelchair, Crutches, etc.)? No PATIENT GENDER DATA: Assigned female at . status: : No status: NO. PATIENT RELEVANT IMPLANT DATA REVIEWED: Yes PATIENT PRESENTS WITH AN IMPLANTABLE OR ATTACHED HOME HEALTH CARE WORKER: No RADIOLOGY DEPARTMENT: General X-ray: Exam(s) Completed: Chest X-Ray PERIPHERAL IV DATA: Not applicable SIGNED BY: RT Linette(Chelle) February 03, 2025 11:35 AM [facility] 11-24-2024 Evaluation note Diagnosis Onset Date Resolution Hypertension chronic November 24 025 8:16am Hypokalemia chronic November 24 8:16am Morbid obesity chronic November 24, 2024 8:16am Bronchitis acute February 16, 2025 10:27am Hilar enlargement acute Septemb 2024 10:27am [facility] Work Phone: [phone]) 182-494706-11-2025 Progress [facility] Internal Medicine [address] [place] [address] [id number] OFFICE VISIT Date of Service: 11/24/24 MR#: [id number] Acct: [id number] Name: IONA WERNER Rep #: [id number] : 1970 Provider: Dr. Zara Barrera MD Age/Sex: 54/F Location: [facility] Status: Signed Intake Vital Signs 03/25/24 16:01 08/10/24 08:47 11/24/24 08:26 Height 5 ft 3 in 5 ft 3 in 5 ft 3 in Weight: 263 lb 6 oz BMI 46.6 BP 146/88 H Blood Pressure Location Lt brachial Position Sitting Respiration 16 Pulse 69 Pulse Source Monitor Temp 96.5 F L Temp Source Temporal Pulse Oximetry (%) 96 Oxygen Delivery Method room air Intake Visit Reasons: 4 M FU Chief Complaint: FU Chronic Conditions Forensic Social Worker Required: No Accompanied by: Self Is patient in pain?: No Allergies Sulfa (Sulfonamide Antibiotics) Allergy (Mild, Verified 11/24/24 08:17) Nausea/Vom/Diarrhea Medications ?Medication ?Instructions ?Recorded ?Confirmed ?Type levonorgestrel 20.4 mcg/24 hr (up 1 device intrauterin e ONCE 08/31/20 11/24/24 History to 8 yrs) 52 mg intrauterine device (Liletta) cetirizine 10 mg capsule (Zyrtec) 10 mg PO DAILY PRN 1 11/24/24 History collagen (bovine) 100 % topical 1 applic topical DAILY 03/19/23 11/24/24 History powder dietary supplement cap PO 03/19/23 11/24/24 His tory mometasone 0.1 % topical cream 1 applic topical DAILY PRN rash 02/02/24 11/24/24 Rx #45 grams triamcinolone acetonide 55 mcg 2 spray intranasal NITA Y #16.9 mL 07/05/24 11/24/24 Rx nasal spray aerosol (Nasacort Allergy) triamterene 37.5 1 tab PO QAM #90 tabs 11/24/24 Rx mg-hydrochlorothiazide 25 mg tablet valsartan 80 mg tablet 80 mg PO DAILY #90 tabs 06/1711/24/24 Rx Nurse's Note: refills needed PFSH Medical History Seasonal allergies Morbid obesity Hypokalemia Surgical History [place] teeth extracted Family History Mother Hypertension Father Heart disease Social History Smoking Status: Former smoker alcohol intake: current details: social substance use type: does not use caffeine: Yes what type of physical activity do you participate in: none seatbelt use: always do you feel safe at home: Yes additional social history: - [employer] HPI HPI Chief Complaint: FU Chronic Conditions Details: IONA WERNER, is a 54 F who presents to the office today for follow-up of her chronic medical conditions. No acute concerns at this time. History of hypertension, elevated in office however she did keep a very good logand her readings athome have ranged largely less than 120/80 mmHg. Highest home blood pressure reading was 132/89 and repeat later read on that day was 129/82 mmHg. Most readings as above less than 120. Blood pressure at home thismorning was 120/76. Has been staying active. Lost some more weight since her last visit.Compliant with her medication. Other chronic medical conditions are stable. ROS Const Constitutional: No body ache, excessive sweating, fatigue, fever(s), frequent falls, headache(s), snoring, weakness, weight change, sleep problems or change in appetite Eyes Eyes: No blurry vision, change in vision, floaters, visual disturbances, eye pain or Light sensitivity ENT ENT: No abnormal hearing, ear or mastoid pain, tinnitus, balance problems, nosebleed/epistaxis, nasal congestion, headache(s), neck pain or sore throat Resp Respiratory: No cough, excessive phlegm production, pain on inspiration, shortness of breath, snoring or wheezing Cardio Cardiology: No chest pain at rest, chest pain with exertion, excessive sweating,shortness of breath, dyspnea on exertion, lightheadedness, orthopnea or palpitations Gastro GI: No abdominal pain, change in bowel habits, constipation, cramping, diarrhea,nausea/dyspepsia orvomiting Genitourinary-Female: No burning urination, painful urination, urinary incontinence, urinary frequency, blood in urine, suprapubic fullness, side pain,abnormal periods or pelvic pain Musc Musculoskeletal: No abnormal gait, joint pain, back pain, limited range of motion, neck pain, numbness, stiffness, tingling or Arthritis Skin Skin: No dry skin, redness, excessive hair growth, yellowing of the eye, lesions, itchy eyes, rash or wounds Neuro Neurology: No abnormal gait, abnormal hearing, abnormal speech, confusion, unsteady gait/balance, dizziness, weakness, frequent falls, headache(s), memory loss, numbness, tingling or visual disturbances Psych Psychiatric: No anxiety, No change in appetite, No confusion, No depression, No memory loss and No Thoughts of harming yourself/Others Endo Endocrine: No cold intolerance, excessive sweating, fatigue, flushing, heat intolerance, increased thirst/drinking, increased hunger or weight change Aller/Imm Allergy/Immunologic: No itchy eyes, seasonal allergy symptoms, hives or wheezing Stevan/Lymp Hematologic/Lymphatic: No easy bleeding, easy bruising or enlarged lymph nodes Exam Const General: cooperative, comfortable and no acute distress Orientation: alert, awake and oriented x3 HENMT Head: normal to inspection, normocephalic and atraumatic Ears: hearing grossly normal bilaterally Eyes General: appearance normal, both eyes and all related structures Neck Neck: normal visual inspection, full ROM, no lymphadenopathy and supple Neck mass: No Thyroid: thyroid normal Resp Effort & Inspection: normal respiratory effort and able to speak in complete sentences Auscultation: Bilateral: Clear to Auscultation Cardio Rate: regular rate Rhythm: regular rhythm Heart Sounds: S1 normal and S2 normal GI Palpation: soft (Nontender, no palpable organomegaly) Neuro General: patient alert, patient awake, patient oriented x3, moves all extremities and CN's II-XI intact bilaterally Extrem General: no clubbing, cyanosis or edema Psych Appearance: grossly normal Mental Status: mental status grossly normal Mood: congruent mood Affect: normal affect Coding Level of Care Code Off vis,est,level 4 Diagnoses Primary hypertension I10 Hypertension type: primary hypertension Hypokalemia E87.6 Morbid obesity E66.01 Assessment and Plan Assessment and Plan (1) Hypertension: Status: Chronic Qualifiers: Hypertension type: primary hypertension Qualified Code(s): I10 - Essential (primary) hypertension Plan: Elevated in office but as above, did come in with a comprehensive log which showed very good control. Average readings less than 120/80 mmHg. Continue triamterene hydrochlorothiazide, valsartan, lifestyle and dietary modifications. (2) Hypokalemia: Status: Chronic Plan: Stable at last check. Continue increased dietary potassium intake. (3) Morbid obesity: Status: Chronic Plan: Doing really well. Down from a BMI of 48-46. She was commended. Continue dietary and lifestyle modifications. This note was generated with [employer] dictation software. It may contain incorrectwords, spelling, and punctuation that were not noted in checking the note beforesigning. 11/24/24 0850 daisha ROCA> Date _ Lynn Barrera MD Cosigner Signature: Date (if applicable) CC: ~ [facility]06-11-2025 Progress note Author Lynn Barrera [facility] Note Date/Time November 24, 2024 8:50 am [facility] [address] [place], [place] [id number] OFFICE VISIT Date of Service: 11/24/24 MR#: [id number] Acct: [id number] Name: IONA WERNER Rep #: [id number] : 1970 Provider: Dr. Zara Barrera MD Age/Sex: 54/F Location: [facility] Status: Signed Intake Vital Signs 03/25/24 16:01 08/10/24 08:47 11/24/24 08:26 Height 5 ft 3 in 5 ft 3 in 5 ft 3 in Weight: 263 lb 6 oz BMI 46.6 BP 146/88 H Blood Pressure Location Lt brachial Position Sitting Respiration 16 Pulse 69 Pulse Source Monitor Temp 96.5 F L Temp Source Temporal Pulse Oximetry (%) 96 Oxygen Delivery Method room air Intake Visit Reasons: 4 M FU Chief Complaint: FU Chronic Conditions Forensic Social Worker Required: No Accompanied by: Self Is patient in pain?: No Allergies Sulfa (Sulfonamide Antibiotics) Allergy (Mild, Verified 11/24/24 08:17) Nausea/Vom/Diarrhea Medications ?Medication ?Instructions ?Recorded ?Confirmed ?Type levonorgestrel 20.4 mcg/24 hr (up 1 device intrauterin e ONCE 08/31/20 11/24/24 History to 8 yrs) 52 mg intrauterine device (Liletta) cetirizine 10 mg capsule (Zyrtec) 10 mg PO DAILY PRN 1 11/24/24 History collagen (bovine) 100 % topical 1 applic topical DAILY 03/19/23 11/24/24 History powder dietary supplement cap PO 03/19/23 11/24/24 His tory mometasone 0.1 % topical cream 1 applic topical DAILY PRN rash 02/02/24 11/24/24 Rx #45 grams triamcinolone acetonide 55 mcg 2 spray intranasal NITA Y #16.9 mL 07/05/24 11/24/24 Rx nasal spray aerosol (Nasacort Allergy) triamterene 37.5 1 tab PO QAM #90 tabs 11/24/24 Rx mg-hydrochlorothiazide 25 mg tablet valsartan 80 mg tablet 80 mg PO DAILY #90 tabs 06/1711/24/24 Rx Nurse's Note: refills needed PFSH Medical History Seasonal allergies Morbid obesity Hypokalemia Surgical History [place] teeth extracted Family History Mother Hypertension Father Heart disease Social History Smoking Status: Former smoker alcohol intake: current details: social substance use type: does not use caffeine: Yes what type of physical activity do you participate in: none seatbelt use: always do you feel safe at home: Yes additional social history: - [employer] HPI HPI Chief Complaint: FU Chronic Conditions Details: IONA WERNER, is a 54 F who presents to the office today for follow-up of her chronic medical conditions. No acute concerns at this time. History of hypertension, elevated in office however she did keep a very good logand her readings at home have ranged largely less than 120/80 mmHg. Highest home blood pressure reading was 132/89 and repeat later read on that day was 129/82 mmHg. Most readings as above less than 120. Blood pressure at home thismorning was 120/76. Has been staying active. Lost some more weight since her last visit. Compliant with her medication. Other chronic medical conditions are stable. ROS Const Constitutional: No body ache, excessive sweating, fatigue, fever(s), frequent falls, headache(s), snoring, weakness, weight change, sleep problems or change in appetite Eyes Eyes: No blurry vision, change in vision, floaters, visual disturbances, eye pain or Light sensitivity ENT ENT: No abnormal hearing, ear or mastoid pain, tinnitus, balance problems, nosebleed/epistaxis, nasal congestion, headache(s), neck pain or sore throat Resp Respiratory: No cough, excessive phlegm production, pain on inspiration, shortness of breath, snoring or wheezing Cardio Cardiology: No chest pain at rest, chest pain with exertion, excessive sweating,shortness of breath, dyspnea on exertion, lightheadedness, orthopnea or palpitations Gastro GI: No abdominal pain, change in bowel habits, constipation, cramping, diarrhea,nausea/dyspepsia or vomiting Genitourinary-Female: No burning urination, painful urination, urinary incontinence, urinary frequency, blood in urine, suprapubic fullness, side pain,abnormal periods or pelvic pain Musc Musculoskeletal: No abnormal gait, joint pain, back pain, limited range of motion, neck pain, numbness, stiffness, tingling or Arthritis Skin Skin: No dry skin, redness, excessive hair growth, yellowing of the eye, lesions, itchy eyes, rash or wounds Neuro Neurology: No abnormal gait, abnormal hearing, abnormal speech, confusion, unsteady gait/balance, dizziness, weakness, frequent falls, headache(s), memory loss, numbness, tingling or visual disturbances Psych Psychiatric: No anxiety, No change in appetite, No confusion, No depression, No memory loss and No Thoughts of harming yourself/Others Endo Endocrine: No cold intolerance, excessive sweating, fatigue, flushing, heat intolerance, increased thirst/drinking, increased hunger or weight change Aller/Imm Allergy/Immunologic: No itchy eyes, seasonal allergy symptoms, hives or wheezing Stevan/Lymp Hematologic/Lymphatic: No easy bleeding, easy bruising or enlarged lymph nodes Exam Const General: cooperative, comfortable and no acute distress Orientation: alert, awake and oriented x3 HENMT Head: normal to inspection, normocephalic and atraumatic Ears: hearing grossly normal bilaterally Eyes General: appearance normal, both eyes and all related structures Neck Neck: normal visual inspection, full ROM, no lymphadenopathy and supple Neck mass: No Thyroid: thyroid normal Resp Effort & Inspection: normal respiratory effort and able to speak in complete sentences Auscultation: Bilateral: Clear to Auscultation Cardio Rate: regular rate Rhythm: regular rhythm Heart Sounds: S1 normal and S2 normal GI Palpation: soft (Nontender, no palpable organomegaly) Neuro General: patient alert, patient awake, patient oriented x3, moves all extremities and CN's II-XI intact bilaterally Extrem General: no clubbing, cyanosis or edema Psych Appearance: grossly normal Mental Status: mental status grossly normal Mood: congruent mood Affect: normal affect Coding Level of Care Code Off vis,est,level 4 Diagnoses Primary hypertension I10 Hypertension type: primary hypertension Hypokalemia E87.6 Morbid obesity E66.01 Assessment and Plan Assessment and Plan (1) Hypertension: Status: Chronic Qualifiers: Hypertension type: primary hypertension Qualified Code(s): I10 - Essential (primary) hypertension Plan: Elevated in office but as above, did come in with a comprehensive log which showed very good control. Average readings less than 120/80 mmHg. Continue triamterene hydrochlorothiazide, valsartan, lifestyle and dietary modifications. (2) Hypokalemia: Status: Chronic Plan: Stable at last check. Continue increased dietary potassium intake. (3) Morbid obesity: Status: Chronic Plan: Doing really well. Down from a BMI of 48-46. She was commended. Continue dietary and lifestyle modifications. This note was generated with Style[employer]ie dictation software. It may contain incorrectwords, spelling, and punctuation that were not noted in checking the note beforesigning. 11/24/24 0850 <Electronically signed by Lynn ashton MD> Date _ Lynn Barrera MD Cosigner Signature: Date (if applicable) CC: ~ [facility] Work Phone: 1(613) 797-174202-25-2025 Evaluation note* Diagnosis Onset Date Resolution Status Admit Date IUD (intrauterine device) in place acute August 10 8:29am Encounter for routine gynecological examination noneactive 2024 8:29am Hypertension chronic November 24 8:16am Hypokalemia chronic November 24 8:16am Morbid obesity chronic November 24, 2024 8:16am [facility] Work Phone: 1(381) 375-808001-20-2025 Evaluation note* Diagnosis Onset Date Resolution Status Admit Date Hypertension chronic June 8:26am Hypokalemia chronic July 05, 2024 8:26am Seasonal allergies chronic 2024 8:26am IUD (intrauterine device) in place acute August 10 8:29am Encounter for routine gynecological examination noneactive 2024 8:29am [facility] Work Phone: 1(549) 302-936810-05-2022 NotePap Smear Specimen AdequacyOct2021 9:08amComment.Satisfactory for evaluation. Endocervical and/or squamous metaplasticcells (endocervical component)are present.[id number] Work Phone: Comment on above:Satisfactory for evaluation. Endocervical and/or squamous metaplasticcells (endocervical component)are present.Evaluation note* Diagnosis Onset Date Resolution Status Encounter for routine gynecological examination noneactive [facility] Work Phone: Evaluation note* Diagnosis Onset Date Resolution Status Encounter for routine gynecological examination noneactive Morbid obesity acute Hypertension chronic Hypokalemia acute Morbid obesity acute Hypertension [facility] Work Phone: Evaluation note* Diagnosis Onset Date Resolution Status Hypokalemia acute Morbid obesity acute Hypertension chronic Morbid obesity acute Hypertension [facility] Work Phone: Evaluation note* Diagnosis Onset Date Resolution Status Hypertension chronic Morbid obesity chronic Seasonal allergies chronic Encounter for routine gynecological examination noneactive [facility] Work Phone: Evaluation note* Diagnosis Fever, unspecified fever cause- Primary Acute cough Acute constipation Unspecified constipation Fever, unspecified fever cause [facility] Acute constipation Unspecified constipation Fever, unspecified fever cause documented in this encounter [facility] Discharge instructionsAmbulatory Orders* Cardiology Location: None Selected [facility] Work Phone: Reason for referral (narrative)No reason for referral information availableWMemorial Health System Work Phone: Chief Complaint and Reason for Visit Chief Complaint SCREENING Annual (LEGAL CLERK) Reason for Visit Encounter for routin e gynecological examination Chief Complaint SCREENING Annual (LEGAL CLERK) CORE CUTTER. EST [facility] PT. CONSENT ONLY 1 M FU Reason for Visit Encounter for routin e gynecological examination Morbid obesity Hypertension Hypokalemia Morbid obesity Hypertension Chief Complaint 1 M FU 3 M FU Reason for Visit Hypokalemia Morbid obesity Hypertension Morbid obesity Hypertension Chief Complaint DRAINAGE, COUGH 4 M FU SCREENING Annual (LEGAL CLERK) Reason for Visit Hypertension Morbid obesity Seasonal allergies Encounter for routine gynecological examination Chief Complaint Admit Date 3 M FU July 05, 2024 8 :26am SCREENING August 10, 2024 7:54am Annual (LEGAL CLERK) August 10, 2024 8:29am Reason for Visit Admit Date Hypertension July 05, 2024 8 :26am Hypokalemia July 05, 2024 8 :26am Seasonal allergies July 05, 2024 8 :26am IUD (intrauterine device) in place u ernesto2024 8:29am Encounter for routine gynecological exam ination August 10, 2024 8:29am Chief Complaint Admit Date SCREENING August 10, 2024 7:54am Annual (LEGAL CLERK) August 10, 2024 8:29am 4 M FU November 24, 2024 8:16 am Reason for Visit Admit Date IUD (intrauterine device) in place u ernesto 2024 8:29am Encounter for routine gynecological exam ination August 10, 2024 8:29am Hypertension November 24, 2024 8:16 am Hypokalemia November 24, 2024 8:16 am Morbid obesity November 24, 2024 8:16 am Chief Complaint Admit Date 4 M FU November 24, 2024 8:16 am ACUTE-COUGH/CONGESTION February 16 10:27am Reason for Visit Admit Date Hypertension November 24, 2024 8:16 am Hypokalemia November 24, 2024 8:16 am Morbid obesity November 24, 2024 8:16 am Bronchitis February 16, 2025 10:27am Hilar enlargement February 16, 2025 10:27am Family History No Family History Records Found Relationship Condition Age at Onset Recorded Date/T jonatan mother Hypertension Unknown father Cardiac disease Unknown Summary Purpose Advance Directives No Advanced Directives Records FoundNo Advanced Directives Records Found Additional Source Comments Goals (unrecognized section and content) Goals may be documented in a n alternate sectionGoals may be documented in an alternate sectionGoals may be documented in an alternate sectionGoals may be documented in an alternate sectionGoals may be documented in an alternate sectionGoals may be documented in an alternate sectionGoals may be documented in an alternate sectionGoals may be documented in an alternate section Care Teams (unrecognized sec tion and content) Team Status: Active Member Role Status Dates No Primary Care Physician Family Provider Active Dr. Lynn Barrera MD Primary Care Provider Active Team Status: Inactive Member Role Status Dates Dr. Lynn Barrera MD Primary Care Barrera cantrell, Attending Provider, Referring Provider Active Team Status: Inactive Member Role Status Dates Dr. Lynn Barrera MD Primary Care Provider, Refer ring Provider Active Merissa Smith CORE CUTTER, CORE CUTTER-C Attending Provider Active Team Status: Inactive Member Role Status Dates Dr. Lynn Barrera MD Primary Care Provider, Refer ring Provider Active Matt GRIFFITH, PA Attending Provider Active Team Status: Inactive Member Role Status Dates Dr. Lynn Barrera MD Primary Care Provider Active Merissa Smith CORE CUTTER, CORE CUTTER-C Attending Provider, Referring Provider Active Team Status: Inactive Member Role Status Dates Dr. Lynn Barrera MD Primary Care Provider, Atten ding Provider Active Team Status: Active Member Role Status Dates Dr. Lynn Barrera MD Primary Care Provider Active Team Status: Inactive Member Role Status Dates Dr. Lynn Barrera MD Primary Care Provider Active Start: July 05, 2024 End: July 05, 2024 Dr. Lynn Barrera MD Attending Provider Active Start: July 05, 2024 End: July 05, 2024 Dr. Lynn Barrera MD Referring Provider Active Start: July 05, 2024 End: July 05, 2024 Team Status: Inactive Member Role Status Dates Dr. Lynn Barrera MD Primary Care Provider Active Start: August 10, 2024 End: August 10, 2024 Merissa Smith CORE CUTTER, CORE CUTTER-C Attending Provider Active Start: August 10, 2024 End: August 10, 2024 Merissa Smith CORE CUTTER, CORE CUTTER-C Referring Provider Active Start: August 10, 2024 End: August 10, 2024 Team Status: Inactive Member Role Status Dates Dr. Lynn Barrera MD Primary Care Provider Active Start: August 10, 2024 End: August 10, 2024 Dr. Lynn Barrera MD Referring Provider Active Start: August 10, 2024 End: August 10, 2024 Merissa Smith CORE CUTTER, CORE CUTTER-C Attending Provider Active Start: August 10, 2024 End: August 10, 2024 Team Status: Inactive Member Role Status Dates Dr. Lynn Barrera MD Primary Care Provider Active Start: October 05, 2024 End: October 05, 2024 Dr. Lynn Barrera MD Attending Provider Active Start: October 05, 2024 End: October 05, 2024 Dr. Lynn Barrera MD Referring Provider Active Start: October 05, 2024 End: October 05, 2024 Team Status: Inactive Member Role Status Dates Dr. Lynn Barrera MD Primary Care Provider Active Start: November 24, 2024 End: November 24, 2024 Dr. Lynn Barrera MD Attending Provider Active Start: November 24, 2024 End: November 24, 2024 Dr. Lynn Barrera MD Referring Provider Active Start: November 24, 2024 End: November 24, 2024 Manager Of Internal Audit Relationship Specialty Start Date End Date Lynn Barrera MD [address] [place] [address] PCP - General Internal Medicine 02/03/25 Manager Of Internal Audit Relationship Specialty Start Date End Date Lynn Barrera MD [address] [place] [address] PCP - General Internal Medicine 02/03/25 Manager Of Internal Audit Relationship Specialty Start Date End Date Lynn Barrera MD [address] [place] [address] PCP - General Internal Medicine 02/03/25 Team Status: Active Member Role/Relationship Status Dates Dr. Lynn Barrera MD Primary Care Provider Active Team Status: Inactive Member Role/Relationship Status Dates Dr. Lynn Barrera MD Primary Care Provider Active Start: November 24, 2024 End: November 24, 2024 Dr. Lynn Barrera MD Attending Provider Active Start: November 24, 2024 End: November 24, 2024 Dr. Lynn Barrera MD Referring Provider Active Start: November 24, 2024 End: November 24, 2024 Team Status: Inactive Member Role/Relationship Status Dates Dr. Lynn Barrera MD Primary Care Provider Active Start: February 16, 2025 End: February 16, 2025 Dr. Lynn Barrera MD Referring Provider Active Start: February 16, 2025 End: February 16, 2025 GLADIS Wiseman Attending Provider Active St art: February 16, 2025 End: February 16, 2025 Source Comments (unrecognize d section and content) In the event this informatio n is protected by the Federal Confidentiality of Alcohol and Drug Abuse Patient Records regulations: The Federal rules restrict any use of the information to criminally investigate or prosecute any alcohol or drug abuse patient.[facility] the event this information is protected by the Federal Confidentiality of Alcohol and Drug Abuse Patient Records regulations: The Federal rules restrict any use of the information to criminally investigate or prosecute any alcohol or drug abuse patient.[facility] the event this information is protected by the Federal Confidentiality of Alcohol and Drug Abuse Patient Records regulations: The Federal rules restrict any use of the information to criminally investigate or prosecute any alcohol or drug abuse patient.[facility] Reason for Visit (unrecogniz ed section and content) Reason Comments Cough Fever, chest congest ion x 4 days Reason Comments Patient Question Results INFORMATION SOURCE (unrecogn ized section and content) DATE CREATED AUTHOR 02/15/2025 [facility] DATE CREATED AUTHOR AUTHOR'S KATARINA WOLF 02/26/2025 [facility] FOR RECORDS PERTAINING TO PATIENTS WHO ARE [...] BE BASED ON THE PRIMARY CLINICAL RECORDS. [employer] [facility]. provides no warranty or guarantee of the accuracy or completeness of information in this document.
== END | disposition home or self-care (01) ==
LOC: CT 15:45
PROVIDERS: PCP Internal Medicine; Referring Provider Physician Assistant; Visit Provider Physician Assistant
DX: R91.8 Other nonspecific abnormal finding of lung field (principal)
CPT/HCPCS: 71260; Q9967

== ENCOUNTER → 2025-04-01 | Outpatient (CLI) | payer OTHER, SELFPAY ==
--- NOTE | 2025-04-01 13:09 | RAD_ITS ---
PROCEDURE: CHEST PA AND LATERAL 04/01/2025 REASON FOR EXAM: F/U TECHNIQUE: Procedure Code: RADCXR Modality: DX Procedure: CHEST PA AND LATERAL COMPARISON: CT chest 03/02/2025 FINDINGS: Hardware: None. Heart: The heart size is normal. Mediastinum: The mediastinal contour is unremarkable. Lungs: The lungs are clear. No pneumothorax or pleural effusion. Bones: The bones are unremarkable. RAD/Chest PA and Lateral IMPRESSION: NO ACUTE FINDINGS. Reading [facility]
== END | disposition home or self-care (01) ==
LOC: MTRAD 13:09
PROVIDERS: PCP Internal Medicine; Referring Provider Physician Assistant; Visit Provider Physician Assistant
DX: J98.11 Atelectasis (principal)
CPT/HCPCS: 71046